=== PATIENT | female | born 1975 | race Caucasian/White ===

== ENCOUNTER 2023-06-09 12:00 | Emergency (ER) | payer OTHER, SELFPAY ==
--- NOTE | ~2023-06-09 | CT_ITS ---
EXAMINATION: CT head/brain wo IV con CLINICAL INFORMATION: Reason for Exam brief period of memory loss Saturday am COMPARISON: None. TECHNIQUE: Contiguous axial imaging was performed from the skull base to vertex without intravenous contrast. Sagittal and coronal reformatted images were obtained. This CT examination was performed using dose optimization techniques as appropriate, variously including the following: * Automated exposure control * Adjustment of mA and/or kV according to patient size (this includes techniques or standardized protocols for targeted exams where dose is matched to indication/reason for exam; i.e. extremities or head) Use of iterative reconstruction technique DLP: 546.9 mGy-cm FINDINGS: No acute osseous or soft tissue abnormality. The mastoid air cells and visualized portions of the paranasal sinuses are well aerated. There is no evidence of acute intracranial hemorrhage or territorial infarction. No abnormal mass effect or midline shift is seen. [place] to white matter differentiation is well preserved. No extra-axial fluid collections are identified. No hydrocephalus. No significant volume loss. There is no abnormal attenuation within the brain parenchyma. CT/CT head/brain wo IV con IMPRESSION: No acute intracranial abnormality including hemorrhage, mass effect, hydrocephalus, or acute territorial edematous infarction.
[2023-06-09 12:33] VITALS: BP 117/55; PULSE 68; RESP 19; TEMP 36.6; O2SAT 98; BMI 41.0
--- NOTE | 2023-06-09 12:39 | ED.GENADULT ---
HPI - General Adult General Chief complaint: General Medical Stated complaint: Headaches Time Seen by Provider: 06/09/23 15:40 Source: patient Mode of arrival: ambulatory Limitations: no limitations History of Present Illness HPI narrative: Patient is a 48-year-old female with history of Graves disease presenting to the emergency department stating that on Saturday morning she was told by a co-worker that she appeared to be asleep in her vehicle. Patient states the worker knows her well and is reliable, reported to patient that she went over to the patient's vehicle to ensure that the patient was breathing which she was. 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 She states she is concerned because she does not remember falling asleep or waking. She was not late to work. he states that she recently returned from a 1 week visit to the [facility] on 05/26. Has had intermittent headaches this week ranging from 4/10 to 7/10. Denies headache or eye twitch currently. Also reports right eye has been twitching intermittently. She reports fatigue, stating that she works 3 jobs. Did not come to ED until today due to having to work. Onset (ago): day(s) Treatments prior to arrival: none Related Data Allergies Allergy/AdvReac Type Severity Reaction Status Date / Time methimazole Allergy Unknown hives Verified 06/09/23 12:32 shelfish Allergy Unknown Hives Uncoded 06/09/23 12:32 Review of Systems Review of Systems: As per HPI. Yes all other systems are reviewed and are negative Constitutional: Constitutional: Reports as per HPI Neurologic: Denies Abnormal speech present [facility] Social History Social History Alcohol intake: never Smoked in Last 30 Days: No Use of substances other than those prescribed or required for medical reasons: No Advance Directives: No Advance Directives Information Provided: No Physical Exam ED Vital Signs: Vital Signs - 24 hr 06/09/23 12:33 06/09/23 15:17 Temperature 98 F 98.4 F Pulse Rate 68 94 Respiratory Rate 19 18 Blood Pressure 117/55 L 130/93 H Pulse Oximetry 98 99 Oxygen Delivery Method Room Air Room Air BMI result Body Mass Index 41.0 Vital signs have been reviewed and appear to be correct. Blood pressure normal. Heart rate normal. Respiratory rate normal. Temperature normal. Oxygen saturation normal. Const General: cooperative, healthy appearing and no acute distress Orientation/consciousness: oriented to person, oriented to place, oriented to time and patient oriented x3 Limitations: no limitations HENMT Head: Yes normocephalic and Yes atraumatic Ears: external ears normal General nose exam: Normal external nose present Face and sinus: Yes face symmetric Mouth: oropharynx normal and moist mucous membranes Throat: Yes uvula midline Eyes Pupils: Equal, round and reactive pupils present Neck Neck: Yes normal visual inspection, Yes no meningeal signs and Yes supple Resp Effort & Inspection: normal respiratory effort and able to speak in complete sentences Auscultation: clear to auscultation bilaterally Cardio Rate: regular rate Rhythm: regular rhythm Heart sounds: S1 normal heart sound present and S2 normal heart sound present GI Palpation (GI): Soft to palpation and nontender Auscultation: normoactive bowel sounds General: Yes no CVA tenderness Back/Spine/Pelvis Back: no CVA tenderness Skin General skin exam: elasticity normal and turgor normal Neuro General: oriented to person, oriented to place, oriented to time, patient oriented x3, gait normal, tone normal, moves all extremities, Normal light touch and pain sensation, no meningeal signs, no focal motor deficits, CN's II-XI intact bilaterally and deep tendon reflexes 2+ bilaterally Cranial nerves: Yes Equal, round and reactive pupils present Cognition (Neuro): normal cognition Speech: No Abnormal speech present Motor exam (neuro): 5/5 motor strength present throughout, Pronator motor function not present, no tremor noted, Normal motor muscle tone present throughout and Motor abnormalities not present Sensory Exam: Normal double simultaneous stimulation for sensation Extrem General: Yes full ROM, Yes no pedal edema and Yes no calf tenderness Psych Mental Status: mental status grossly normal Affect: normal affect Thought process: Normal thought process present NIH Stroke Scale Internal: Initial- Upon Arrival Time: 15:55 Level of Consciousness: Alert Level of Consciousness Questions: Answers both questions correctly Level of Consciousness Commands: Performs both tasks correctly Best Gaze: Normal Visual: No visual loss Facial Palsy: Normal Motor Arm (Right): No drift Motor Arm (Left): No drift Motor Leg (Right): No drift Motor Leg (Left): No drift Limb Ataxia: Absent Sensory: Normal Best Language: No aphasia Dysarthia: Normal Extinction and Inattention: No abnormality Score: 0 Course Course Course Narrative: This is a rapid medical exam. Deferred additional HPI, ROS, PE to primary provider. 48-year-old female here with complaints of feeling more tired, headaches, had episode where she was sleeping in her car and Saturday but can not recall this event occurring, eye is twitching. Works 3 jobs has been making mistakes at work. Will obtain labs, UA, viral testing VSS Medical Decision Making Medical Decision Making [facility] Narrative: Patient is a 48-year-old female with history of Graves disease presenting to the emergency department stating that on Saturday morning she was told by a co-worker that she appeared to be asleep in her vehicle. On exam patient is awake, A+Ox3, VS WNL, afebrile, normal neurological exam without focal deficits, physical exam findings as above. Given reported symptoms and physical exam findings, initial differential includes seizure, TIA, dysrhythmia, fatigue, electrolyte abnormality. Labs within normal limits, D-dimer negative. EKG shows normal sinus rhythm. No evidence of infection on urinalysis. Viral swabs negative. CT notable for no acute abnormalities. My interpretation is in agreement with the radiologist's interpretation. Results discussed with patient and all questions answered. Case discussed with Dr. Arrieta who agrees patient is stable for discharge home. Instructed patient to follow up with PCP on Saturday. Return precautions discussed at bedside. Patient verbalized understanding of and agreement with plan. Differential Diagnosis Differential Diagnoses: The differential diagnosis associated with the presentation includes As per [facility]. Admission/Observation Consideration of admission/observation: Escalation of care including admission/observation considered Lab Data [facility] Lab Attestation statement: I reviewed the patient's lab results. As per MDM 06/09/23 13:17 06/09/23 13:17 Labs: Lab Results 06/09/23 06/09/23 06/09/23 Range/Units 13:17 15:39 17:01 WBC 5.7 (4.8-10.8) X10*3/uL RBC 4.34 (4.20-5.50) X10*6/uL Hgb 13.1 (12.0-16.0) g/dl Hct 39.0 (37.0-47.0) % MCV 89.9 (80.0-98.0) fL MCH 30.2 (27.0-33.0) pg MCHC 33.6 (31.0-35.0) g/dl RDW 13.0 (11.0-16.0) % Plt Count 267 (160-400) X10*3/uL MPV 10.0 (9.4-12.3) fL Immature Gran % (Auto) 0.3 (0.0-0.4) % Neut % (Auto) 67.1 (45-73) % Lymph % (Auto) 25.7 (20-40) % [place] % (Auto) 5.8 (2-11) % Eos % (Auto) 0.9 (0-4) % Baso % (Auto) 0.2 (0-2) % Lymph # (Auto) 1.5 (1.2-4.9) X10*3/uL [place] # (Auto) 0.3 (0.1-1.2) X10*3/uL Eos # (Auto) 0.1 (0.0-0.4) X10*3/uL Baso # (Auto) 0.0 (0.0-0.2) X10*3/uL Abs Immat Gran (auto) 0.02 (0.00-0.03) X10*3/uL Absolute Neuts (auto) 3.8 (2.0-8.3) x10*3/uL Absolute Nucleated RBC 0.000 (0.0-0.012) X10*3/uL Nucleated RBC % (auto) 0.0 (0.0-0.2) /100WBC D-Dimer High Sensitivty 192 NG/ML Sodium 140 (135-145) mmol/L Potassium 3.9 (3.3-5.1) mmol/L Chloride 108 (96-108) mmol/L Carbon Dioxide 23 (22-29) mmol/L Anion Gap 13 (12-20) BUN 12 (9-16) mg/dL Creatinine 0.79 (0.5-1.4) mg/dL Estim Creat Clear Calc 88.9 Estimated GFR > 60 Random Glucose 116 H (60-115) mg/dL Calcium 9.2 (8.4-10.2) mg/dL Magnesium 1.7 (1.6-2.6) mg/dL Total Bilirubin 0.6 (0.0-1.0) mg/dL Direct Bilirubin 0.2 (0.0-0.5) mg/dL AST 17 (5-31) U/L ALT 13 (0-31) U/L Alkaline Phosphatase 75 (39-117) U/L Total Protein 7.6 (6.5-8.0) g/dL Albumin 4.0 (3.5-5.0) g/dL TSH 5.50 H (0.32-4.0) uIU/mL Free T4 0.95 (0.71-1.85) ng/dL Urine Color Yellow Urine Appearance Clear Urine pH 5.5 (5.0-9.0) Ur Specific [place] 1.010 (1.005-1.025) Urine Protein Negative (Neg-Trace) mg/dL Urine Glucose (UA) Negative (Negative) mg/dL Urine Ketones Negative (Negative) mg/dL Urine Blood Negative (Negative) Urine Nitrite Negative (Negative) Ur Leukocyte Esterase Trace H (Negative) Urine RBC 0-2 (0-2) /HPF Urine WBC 0-5 (0-5) /HPF Ur Squamous Epith Cells 3-5 (0-2) /HPF Urine Bacteria None Seen (None Seen) Hyaline Casts 0-2 (0-2) /LPF Urine Test NEGATIVE (NEGATIVE) Influenza Type A (PCR) NEGATIVE (Negative) Influenza Type B (PCR) NEGATIVE (Negative) RSV RNA Qual (PCR) NEGATIVE (Negative) SARS-CoV-2 RNA (RT-PCR) NEGATIVE (Negative) Independent Interpretation I performed an independent interpretation of an: EKG (normal sinus rhythm, rate 66bpm, normal OR interval and QTc) and CT Scan Interpretation: No acute abnormalities Radiology Impression Discussion of test interpretation with radiology: I have reviewed the radiologist's reading. Radiologist Impression: CT/CT head/brain wo IV con IMPRESSION: No acute intracranial abnormality including hemorrhage, mass effect, hydrocephalus, or acute territorial edematous infarction. External Record Review External record reviewed: Inpatient record, Office record and Outpatient record Discharge Plan Discharge Clinical Impression: Episode of unresponsiveness Patient Disposition: Home, Self-Care Additional Instructions: You were evaluated in the emergency department today for a reported episode of unresponsiveness which you do not remember. Your evaluation including EKG, labs, urinalysis, viral testing, and head CT did not show evidence of conditions requiring emergent medical treatment at this time. It is important that you follow up with your primary care provider this week. Return to the emergency department if you experience additional episodes of unresponsiveness, severe headaches, fever, seizure-like activity, fainting, chest pain or shortness of breath, or any other concerning symptoms.
[2023-06-09 13:47] LABS: MANUAL DIFF FLAG NO
[2023-06-09 13:51] LABS: Basophils Percent Auto 0.2 % (0-2); Eosinophils Absolute Auto 0.1 X10*3/uL (0.0-0.4); Eosinophils Percent Auto 0.9 % (0-4); Hemoglobin 13.1 g/dl (12.0-16.0); Imm Gran Abs Auto 0.02 X10*3/uL (0.00-0.03); Imm Gran Pct Auto 0.3 % (0.0-0.4); Lymphocytes Absolute Auto 1.5 X10*3/uL (1.2-4.9); Lymphocytes Percent Auto 25.7 % (20-40); Mean Corpuscular HGB Conc 33.6 g/dl (31.0-35.0); Mean Corpuscular Hemoglobin 30.2 pg (27.0-33.0); Mean Corpuscular Volume 89.9 fL (80.0-98.0); Monocytes Absolute Auto 0.3 X10*3/uL (0.1-1.2); Monocytes Percent Auto 5.8 % (2-11); Neutrophils Absolute Auto 3.8 x10*3/uL (2.0-8.3); Neutrophils Percent Auto 67.1 % (45-73); Platelet Count 267 X10*3/uL (160-400); Red Blood Count 4.34 X10*6/uL (4.20-5.50); White Blood Count 5.7 X10*3/uL (4.8-10.8)
[2023-06-09 14:00] LABS: Appearance Urine Clear; Color Urine Yellow; Glucose Urine UA Negative (Negative); Leukocyte Esterase Urine Trace (Negative); Nitrite Urine Negative (Negative); PH 5.5 (5.0-9.0); UMIC TRIGGER UACC YES; Urine Blood Negative (Negative); Urine Ketones Negative (Negative); Urine Protein Negative (Neg-Trace)
[2023-06-09 14:02] LABS: UPreg QC Valid YES; Urine Pregnancy NEGATIVE (NEGATIVE)
[2023-06-09 14:05] LABS: Bacteria Urine None Seen (None Seen); Hyaline Casts Urine 0-2 /LPF (0-2); RBC Urine 0-2 /HPF (0-2); WBC Urine 0-5 /HPF (0-5)
[2023-06-09 14:37] LABS: Alanine Aminotransferase 13 U/L (0-31); Alkaline Phosphatase 75 U/L (39-117); Anion Gap 13 (12-20); Aspartate Amino Transferase 17 U/L (5-31); Bilirubin Direct 0.2 mg/dL (0.0-0.5); Bilirubin Total 0.6 mg/dL (0.0-1.0); Blood Urea Nitrogen 12 mg/dL (9-16); Calcium 9.2 mg/dL (8.4-10.2); Carbon Dioxide 23 mmol/L (22-29); Chloride 108 mmol/L (96-108); Creatinine Clr Calc Pharmacy 88.9; Estimated Glomerular Filt Rate > 60; Glucose Random 116 mg/dL (60-115); Magnesium 1.7 mg/dL (1.6-2.6); Potassium 3.9 mmol/L (3.3-5.1); Sodium 140 mmol/L (135-145); Total Protein 7.6 g/dL (6.5-8.0)
[2023-06-09 14:47] LABS: Influenza A PCR NEGATIVE (Negative); Influenza B PCR NEGATIVE (Negative); Resp Syncy Virus RNA Qual PCR NEGATIVE (Negative); SARS COV2 PCR INHOUSE NEGATIVE (Negative)
[2023-06-09 15:17] VITALS: BP 130/93; PULSE 94; RESP 18; TEMP 36.9; O2SAT 99
--- NOTE | 2023-06-09 16:44 | ECG_ITS ---
Test Reason : UNRESPONSIVE EPISODE Blood Pressure : / mmHG Vent. Rate : 066 BPM Atrial Rate : 066 BPM P-R Int : 158 ms QRS Dur : 084 ms QT Int : 388 ms P-R-T Axes : 039 054 025 degrees QTc Int : 406 ms Normal sinus rhythm Normal ECG No previous ECGs available Referred By: Anabelle Lancaster Electronically Signed By:LAVERNE GUTIERREZ MD
[2023-06-09 16:52] LABS: Free T4 (Free Thyroxine) 0.95 ng/dL (0.71-1.85)
[2023-06-09 17:16] LABS: D Dimer High Sensitivity 192 NG/ML
== END 2023-06-09 18:08 | disposition home or self-care (01) ==
PROVIDERS: Nurse Practitioner Family; Registered Nurse Emergency; Emergency Provider Emergency Medicine
DX: R51.9 Headache, unspecified (principal); R40.4 Transient alteration of awareness; Z79.899 Other long term (current) drug therapy; Z11.52 Encounter for screening for COVID-19; Z20.822 Contact with and (suspected) exposure to COVID-19
CPT/HCPCS: 0241U; 36415; 70450; 80048; 80076; 81001; 81003; 81025; 83735; 84439; 84443; 85025; 85379; 93005; 99284

== ENCOUNTER → 2023-06-09 16:44 | Outpatient (BNV) | payer OTHER, SELFPAY | PROVIDERS: Emergency Provider Emergency Medicine; Visit Provider Internal Medicine Cardiovascular Disease | DX: R51.9 Headache, unspecified (principal) | CPT/HCPCS: 93010 ==

== ENCOUNTER 2023-11-01 10:58 | Outpatient (AMB) | payer OTHER, SELFPAY ==
--- NOTE | 2023-11-01 11:04 | MHC.PC.OV ---
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 (High BP) - see comments Intake Note: Patient here to establish care and have PE done. Allergies methimazole Allergy (Unknown, Verified 11/01/23 11:08) hives shelfish Allergy (Unknown, Uncoded 11/01/23 11:08) Hives Medication List - Last Reconciled 11/01/23 by HEMANTH Roth No Known Home Meds Tobacco use date assessed: 11/01/23 Dental Screening Dental Screen Date: 11/01/23 Did you have a dental visit in the last 12 months?: Yes Did you have a dental problem in the last 6 months where you did not have access to dental care?: No Was dental information given to patient?: Patient has dentist HPI HPI Comments History of Present Illness Details 48-year-old female with Graves disease, obesity, external hemorrhoid, perimenopause, seasonal allergies, ADHD, Vitamin D def, mild anemia, b12 deficiency, microalbuminuria Surgical: gastric sleeve 2017 with hernia repair, ET tubes in childhood, sebaceous cyst removed from back 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 Health Maintenance: ? Colon referred for this today ? Mammo 01/30/2021, states she had mammo 05/2022, reports has an order, just needs to get done. ? DEXA n/a ? PAP referred for this today ? 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 Limited medical records; details per pt report. Labs done in May of 2023 show a normal CBC, normal CMP with the exception of a mildly elevated random glucose of 116, TSH 5.50, T4 0.95, normal urinalysis, normal CTA of the head. These labs were done during an emergency room visit for brief unresponsiveness while in her car at work. Recommended to see Neuro, but needed a referral. Visit reviewed today. Open to neurology referral, she reports that her father has epilepsy. She has not had any unresponsive episodes since this time. Graves: Was on methimazole; caused a rash; was active with Endo in the past [ Dr [facility] No longer on any medications for her Graves disease. Denies any symptoms. Open to a new referral to endocrinology. GI: when she bends over once every 2 months has cramp/spasm of llq tightens and then loosens up on its own. This started about 1 year ago. can have constipation at times; decreased coffee intake; tried to increase h20 intake to help. Nothing has really helped. Has never had a colonoscopy. Open to referral today. Perimenopausal: May 2023 first missed period. Then June had 2 periods. August and September regular; overdue for a Pap smear. 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 Shellfish allergy; does not have Epipen. Does nt think she needs this. Offered and declined. Advised to at least carry benadryl. Also admits some occasional swelling in her hand, feet and face. Unknown cause @ this time. Occurs around time of travel. ADHD is not treated. Labs from today show slightly low RBCs 4.11, normal hemoglobin, slightly low hematocrit 36.9, otherwise normal CBC, normal electrolytes, normal renal function, hemoglobin A1c 5.2%, normal LFTs, low vitamin-D at 23.6, low normal B12, normal folate, TSH mildly elevated at 4.1 a, free T4 0.88, elevated urine microalbumin creatinine to 3.4, direct LDL pending at this time Plan: Neuro referral to eval episode of unresponsiveness, family hx epilepsy. Refer to GI and recreation supervisor for colon and pap Refer to endocrinology for Graves disease Unsure of cause of LLQ cramp; monitor and fu with GI FLonase and antihistamines for seasonal allergies. Recommendation to start a multivitamin that includes iron, vitamin-D and vitamin B12. We will need to monitor labs in the next visit, which will be in 1 year for complete physical exam. [facility] Surgical History (Updated 11/01/23 @ 18:37 by Ana Murphy, OCCUPATIONAL THERAPIST-) Status post sleeve gastrectomy Hx of hernia repair Social History Housing: Condominium Alcohol intake: never service: No Current occupational status: employed Current occupation: [employer] Cognitive needs: No Hearing needs: No Vision needs: Yes Questionnaire PHQ-9 Over the last 2 weeks, how often have you been bothered by any of the following problems? 1. Little interest or pleasure in doing things: not at all 2. Feeling down, depressed, or hopeless: not at all 3. Trouble falling or staying asleep, or sleeping too much: not at all 4. Feeling tired or having little energy: several days 5. Poor appetite or overeating: not at all 6. Feeling bad about yourself - or that you are a failure or have let yourself or your family down: not at all 7. Trouble concentrating on things, such as reading the newspaper or watching television: several days 8. Moving or speaking so slowly that other people could have noticed. Or the opposite - being so fidgety or restless that you have been moving around a lot more than usual: not at all 9. Thoughts that you would be better off or of hurting yourself in some way: not at all Total score: 2 Depression Screening Interpretation: Negative Depression Screening Done: Yes 62057 - PHQ-9 Billing: Yes Source: Developed by Drs. Anderson Kruger, Heather Masters, Nicola Wong and colleagues, with an educational brady from [employer]. Thrive Questionnaire Date Thrive assessed: 11/01/23 I am a: Patient What is your living situation today?: I have a steady place to live Within the past 12 months, did the food you bought not last and you didn't have the money to get more?: Never true Within the past 12 months, did you worry whether your food would run out before you got money to buy more?: Never true Do you have trouble paying for medicines?: No Do you have trouble getting transportation to medical appointments?: No Do you have trouble paying your heating and electricity bill?: No Do you have trouble taking care of your child, family member or friend?: No Do you have trouble with day-to-day activities such as bathing, preparing meals, shopping, managing finances, etc.?: No Are you currently unemployed and looking for a job?: No Are you interested in more education?: No Currently or been in a relationship where the following occur: No concerns reported THRIVE Score: 0 AUDIT C Alcohol Use Questionnaire (AUDIT-C) 1. How often do you have a drink containing alcohol?: Monthly or less 2. How many drinks containing alcohol do you have on a typical day when you are drinking?: 1 or 2 3. How often do you have six or more drinks on one occasion?: Never Total Score: 1 Score Reviewed/Action Taken: Yes MEHNAZ-7 AMB Questionnaire MEHNAZ-7 Date MEHNAZ - 7 assessed: 11/01/23 Feeling nervous, anxious, or on edge: 1 = Several days Not being able to stop or control worryin = Not at all Worrying too much about different things: 1 = Several days Trouble relaxin = Not at all Being so restless that it is hard to sit still: 0 = Not at all Becoming easily annoyed or irritable: 0 = Not at all Feeling afraid as if something awful might happen: 0 = Not at all Total MEHNAZ-7 score (0-4 normal; 5-9 mild; 10-14 moderate; 15-21 severe): 2 Source: Developed by Drs. Anderson Kruger, Heather Masters, Nicola Wong and colleagues, with an educational brady from [employer]. MEHNAZ-7 Assessment Billing MEHNAZ-7 Assessment Tool: MEHNAZ-7 Assessment 39950 Physical exam (Primary Care) Vital Signs: Last Vital Signs Pulse 76 11/01/23 11:07 BP 120/86 11/01/23 11:07 Pulse Ox 98 11/01/23 11:07 Oxygen Delivery Method Room Air 11/01/23 11:07 BMI result Body Mass Index 42.4 BMI Assessment/Plan discussion: High BMI High, discussed plan: lifestyle Tobacco/Smoking Status: Tobacco use Status Tobacco use date assessed 11/01/23 11/01/23 11:12 PHQ-9: PHQ-9 Score PHQ-9: Total score 2 11/01/23 11:18 Depression Screening Interpretation: Negative Thrive Assessment: Date of Thrive Assessment Date Thrive assessed 11/01/23 11/01/23 11:18 Currently or been in a relationship where the following occur: No concerns reported Const Other: General: Well developed, well nourished, in no acute distress. Appears stated age. Head: Normocephalic, atraumatic. Eyes: Pupils are equal, round and reactive to light and accommodation. Conjunctivae are clear. Vision grossly normal. Ears: TMs with congestion bilat, AU, EACS WNL Nose: Patent, without discharge. Mouth: There are no ulcers or lesions noted. No inflammation, no post nasal drip, no plaques nor exudates. Neck: Supple, no adenopathy; thyroid palpable, nontender, + PND Lungs: Clear to auscultation bilaterally. No rales, rhonchi or wheeze noted. Good air flow in all mora. Heart: Regular rate and rhythm. No murmurs, click, rubs or gallops are noted. Abdomen: Bowel sounds present in all quadrants. The abdomen is soft, nontender, with no masses or organomegaly noted. No hernias are noted. No reproducible abd pain. Musculoskeletal: Joints are nontender, without swelling, redness, or effusions. Range of motion is observed to be normal. Pulses: Peripheral pulses are equal and palpable bilaterally. Extremities: No clubbing, cyanosis noted. Lymphedema, thickening of skin around anterior ankles Neurologic: Gait and station normal. Cranial Nerves 2-12 intact. Motor strength grossly symmetrical and intact. No sensory loss. Balance normal. Skin: No rashes, ulcers, or lesions noted. Turgor is good. Skin color is good. Hair and nails are without abnormalities. Psych: Normal eye contact, affect and mood appropriate, and normal interactions. Patient is alert and appropriate to context. Assessment and Plan Assessment & Plan (1) Encounter for general adult medical examination without abnormal findings: Code(s): Z00.00 - Encounter for general adult medical examination without abnormal findings (2) Screen for colon cancer: Code(s): Z12.11 - Encounter for screening for malignant neoplasm of colon (3) Screening for cervical cancer: Code(s): Z12.4 - Encounter for screening for malignant neoplasm of cervix (4) Episode of unresponsiveness: Code(s): R40.4 - Transient alteration of awareness (5) Family history of epilepsy: Code(s): Z82.0 - Family history of epilepsy and other diseases of the nervous system (6) Graves disease: Code(s): E05.00 - Thyrotoxicosis with diffuse goiter without thyrotoxic crisis or storm (7) Vitamin D deficiency: Code(s): E55.9 - Vitamin D deficiency, unspecified (8) B12 deficiency: Code(s): E53.8 - Deficiency of other specified B group vitamins (9) Mild anemia: Code(s): D64.9 - Anemia, unspecified (10) Shellfish allergy: Code(s): Z91.013 - Allergy to seafood (11) Morbid obesity with BMI of 40.0-44.9, adult: Code(s): E66.01 - Morbid (severe) obesity due to excess calories; Z68.41 - Body mass index [BMI] 40.0-44.9, adult (12) Perimenopausal: Code(s): N95.1 - Menopausal and female climacteric states (13) Seasonal allergies: Code(s): J30.2 - Other seasonal allergic rhinitis (14) ADHD: Code(s): F90.9 - Attention-deficit hyperactivity disorder, unspecified type Qualifiers: Attention deficit-hyperactivity disorder type: predominantly inattentive Qualified Code(s): F90.0 - Attention-deficit hyperactivity disorder, predominantly inattentive type (15) Microalbuminuria: Code(s): R80.9 - Proteinuria, unspecified Orders: Orders Comprehensive Met. Panel Today E05.00 - Thyrotoxicosis with diffuse goiter without thyrotoxic crisis or storm Complete Blood Count no Diff Today E05.00 - Thyrotoxicosis with diffuse goiter without thyrotoxic crisis or storm Microalbumin, Random (w Creat) Today E05.00 - Thyrotoxicosis with diffuse goiter without thyrotoxic crisis or storm TSH reflex Free T4 Today E05.00 - Thyrotoxicosis with diffuse goiter without thyrotoxic crisis or storm Vitamin B12 and Folate Today E05.00 - Thyrotoxicosis with diffuse goiter without thyrotoxic crisis or storm Vitamin D 25-OH Total Today E05.00 - Thyrotoxicosis with diffuse goiter without thyrotoxic crisis or storm Hemoglobin A1c Today E05.00 - Thyrotoxicosis with diffuse goiter without thyrotoxic crisis or storm LDL Cholesterol Direct Today E05.00 - Thyrotoxicosis with diffuse goiter without thyrotoxic crisis or storm Referrals Gastroenterology Referral Z12.11 - Encounter for screening for malignant neoplasm of colon STICKER OPERATOR Referral Z12.4 - Encounter for screening for malignant neoplasm of cervix Neurology Referral R40.4 - Transient alteration of awareness, Z82.0 - Family history of epilepsy and other diseases of the nervous system Endocrinology Referral E05.00 - Thyrotoxicosis with diffuse goiter without thyrotoxic crisis or storm Patient Instructions: Walk-In Care (Urgent Care): We Make it Easy Walk-in for urgent medical issues such as: ? Seasonal Allergies ? Insect Bites ? Cough ? Diarrhea ? Acute Asthma Attacks ? Back, Knee or Joint Pain ? Ear Infection ? Fever without a Rash ? Headaches ? Nausea ? [place], Rash or Skin Irritation ? Sore Throat ? Sports Physicals ? Vomiting Most insurances are accepted. Patients do not need to be part of the [facility] to seek care at the walk-in clinic. Locations [facility] , [place] [address] ? [phone] [facility] in [place] provides services to ages 18 and over. Open Saturday-Saturday: 8 a.m. to 5 p.m. and Saturday: 9 a.m. to 3 p.m.* *Hours may vary due to staffing availability. To confirm Walk-In Care hours in [place], please call [phone]. [address] [place] [address] ? [phone] [facility] in [place] provides services to ages 12 and over. Open Saturday-Saturday: 8 a.m. to 5 p.m. Hours may vary due to staffing availability. To confirm Walk-In Care hours in [place], please call [phone]. LABORATORY SERVICES: [facility] [place] [place] Lab ? Primary Location [address] [place] [address] Saturday through Saturday 6:00 AM ? 5:00 PM Saturday 7:00 AM ? 11:00 AM* [phone] The [facility] [place] [place] Lab is centrally located near the front entrance of the Medical Center for easy outpatient access. Convenient parking is provided for outpatients. *Hours may vary due to staffing availability. To confirm Laboratory hours for any location, please call [phone]. Offsite Location For your convenience, we offer offsite laboratory draw stations at the following locations: [address] [place] [address] [address], [address] Saturday through Harry 7:30 AM ? 1:00 PM* [phone] *Hours may vary due to staffing availability. To confirm Laboratory hours for any location, please call [phone]. [place] ? [address] Saturday through Saturday 6:00 AM ? 3:30 PM* Saturday 6:30 AM ? 3 PM* [phone] *Hours may vary due to staffing availability. To confirm Laboratory hours for any location, please call [phone] [address] [facility] Saturday through Saturday 7:30 AM ? 4:00 PM* [phone] *Hours may vary due to staffing availability. To confirm Laboratory hours for any location, please call [phone] [place] [address] Saturday through 9:00 AM ? 4:00 PM* *Hours may vary due to staffing availability. To confirm Laboratory hours for any location, please call [phone]. Appointments are not necessary. Walk-ins are welcome. Like all the departments throughout the [facility], our Lab undergoes frequent reviews to ensure the quality and accuracy of test results, and our staff takes special pride in its status as a nationally accredited facility. Patient Portal: ONE PATIENT. ONE RECORD. BETTER CARE. [facility] has a fully integrated, cutting-edge mobile electronic health information system that has revolutionized the way we care for our patients and manage our organization. This system improves communication and coordination enabling us to provide safe, higher-quality care, and an overall positive experience for staff and patients. Our first priority, as always, is to deliver the highest quality care possible. The system is running in the background supporting that priority. This portal is for all [facility] and [facility] services and practices. If you are experiencing any technical difficulties with enrolling or logging into the Patient Portal please complete the [facility] [place] [place] Patient Portal Technical Support Form. [facility] now offers a new secure on-line interactive tool for patients to review their health information ? Patient Portal. This interactive web portal will enable patients and their families to take an active role in their care by providing easy, secure access to their health information via the internet. The Patient Portal provides patients with instant access to their health information, including laboratory results, medications, allergies, demographic information, visit history, and more. In addition to managing their own care, parents and health care proxies with authorized consent will appreciate the ability to access the records of those individuals for whom they provide care. Please note: if you wish to gain access (Proxy) to another patient?s portal, you will be required to come to the Medical Records Department in person at [facility]. Both the patient giving proxy access and the proxy will need to provide photo identification and complete the appropriate authorization. The Patient Portal also allows track their appointments online. The [facility] [place] [place] Patient Portal also saves patients time by allowing them to submit updates to their demographic and contact information prior to their visits. Portal email notifications will also alert patients to any new activity on their portal, such as test results and new appointments. In order to initially enroll in the [facility] [place] [place] Patient Portal, you will need to enter some required information including the following: ? your [facility] [place] [place] Medical Record number ? your personal home email address ? name ? date of Please note: In order to enroll in the [facility] [place] [place] Patient Portal, we need to have your email address on file in your electronic medical record. The email address needs to be specific for one person (yourself) in order for your Portal enrollment to be successful. You can update your email address in person with our Registration staff when you are registering for a hospital visit. Otherwise, you will need to come to the Health Information Management (Medical Records) Department at [facility]. We are open from Saturday ? Saturday from 7:30 a.m. ? 4:30 p.m. You will be required to present a photo id. Once you have successfully enrolled in the Patient Portal, you will receive a one-time user id and password for the Portal, sent to your email address. This will allow you to log into the Patient Portal within 99 hrs and reset your own logon id and password, and define personal security questions. Once your permanent login and password have been set, you can log into the [facility] [place] [place] Patient Portal at any time via the blue button above or from the Portal Logon button on any page of the [facility] website. [facility] and [facility] encourage all of our patients to enroll in Patient Portal as it presents a valuable opportunity for patients and their families to actively participate in their care and stay healthy Welcome to [facility]. We look forward to working with you. Health screenings for women You should visit your health care provider from time to time, even if you are healthy. The purpose of these visits is to: Screen for medical issues Assess your risk for future medical problems Encourage a healthy lifestyle Update vaccinations and other preventive care services Help you get to know your provider in case of an illness Information Even if you feel fine, you should still see your provider for regular checkups. These visits can help you avoid problems in the future. For example, the only way to find out if you have high blood pressure is to have it checked regularly. High blood sugar and high cholesterol levels also may not have any symptoms in the early stages. A simple blood test can check for these conditions. There are specific times when you should see your provider or receive specific health screenings. The [place] Preventive Services Task Force publishes a list of recommended screenings. Below are screening guidelines for women ages 18 to 39. BLOOD PRESSURE SCREENING Your blood pressure should be checked at least once every 3 to 5 years if: Your blood pressure is in the normal range (top number less than 120 mm Hg and bottom number less than 80 mm Hg) You don't have risk factors for high blood pressure Ask your provider if you need your blood pressure checked more often if: The top number is 120 to 129 mm Hg or the bottom number is 70 to 79 mm Hg You have diabetes, heart disease, kidney problems, are overweight, or have certain other health conditions You have a first-degree relative with high blood pressure You are Black You had high blood pressure during a If the top number is 130 mm Hg or greater or the bottom number is 80 mm Hg or greater, this is considered stage 1 hypertension. Schedule an appointment with your provider to learn how you can reduce your blood pressure. Watch for blood pressure screenings in your area. Ask your provider if you can stop in to have your blood pressure checked. BREAST CANCER SCREENING Experts do not agree about the benefits of breast self-exams in finding breast cancer or saving lives. Talk to your provider about what is best for you. A screening mammogram is not recommended for most women under age 40. Your provider may discuss and recommend mammograms, MRI scans, or ultrasounds if you have an increased risk for breast cancer, such as: A mother or sister who had breast cancer at a young age (most often starting screening earlier than the age the close relative was diagnosed) You carry a high-risk genetic marker CERVICAL CANCER SCREENING Cervical cancer screening should start at age 21 years unless your provider advises otherwise. After the first test: Women ages 21 through 29 should have a Pap test every 3 years. Exoprts do not agree on whether HPV testing is recommended for this age group. Women ages 30 through 65 should be screened with either a Pap test every 3 years or the HPV test every 5 years or both tests every 5 years (called cotesting ). Women who have been treated for precancer (cervical dysplasia) should continue to have Pap tests for 20 years after treatment or until age 65, whichever is longer. If you have had your uterus and cervix removed (total hysterectomy), and you have not been diagnosed with cervical cancer or precancer (high grade cervical neoplasia), you do not need cervical cancer screening. CHOLESTEROL SCREENING Cholesterol screening should begin at: Age 45 for women with no known risk factors for coronary heart disease Age 20 for women with known risk factors for coronary heart disease Repeat cholesterol screening should take place: Every 5 years for women with normal cholesterol levels More often if changes occur in lifestyle (including weight gain and diet) More often if you have diabetes, heart disease, kidney problems, or certain other conditions DIABETES SCREENING You should be screened for diabetes starting at age 35 and then repeated every 3 years if you have no risk factors for diabetes. Screening may need to start earlier and be repeated more often if you have other risk factors for diabetes, such as: You have a first degree relative with diabetes. You are overweight or have obesity. You have high blood pressure, prediabetes, or a history of heart disease. Screening for diabetes should be done if you are planning to become and you are overweight and have other risk factors such as high blood pressure. DENTAL EXAM Go to the dentist once or twice every year for an exam and cleaning. Your dentist will evaluate if you need more frequent visits. EYE EXAM Have an eye exam every 5 to 10 years before age 40. If you have vision problems, have an eye exam every 2 years or more often if recommended by your provider. You should have an eye exam that includes an examination of your retina (back of your eye) at least every year if you have diabetes. IMMUNIZATIONS Commonly needed vaccines include: Flu shot: get one every year. COVID-19 vaccine: ask your provider what is best for you. Tetanus-diphtheria and acellular pertussis (Tdap) vaccine: have one at or after age 19 as one of your tetanus-diphtheria vaccines if you did not receive it as an adolescent. Tetanus-diphtheria: have a booster (or Tdap) every 10 years. Varicella vaccine: receive 2 doses if you never had chickenpox or the varicella vaccine. Hepatitis B vaccine: receive 2, 3, or 4 doses, depending on your exact circumstances. Measles, mumps, and rubella (MMR) vaccine: receive 1 to 2 doses if you are not already immune to MMR. Your provider can tell you if you are immune. Ask your provider about the human papillomavirus (HPV) vaccine if: You have not received the HPV vaccine in the past You have not completed the full vaccine series (you should catch up on this shot) Ask your provider if you should receive other immunizations if you have certain health problems that increase your risk for some diseases such as pneumonia. INFECTIOUS DISEASE SCREENING Women who are sexually active should be screened for chlamydia and gonorrhea up until age 25. Women 25 years and older should be screened for chlamydia and gonorrhea if at high risk. Screening for hepatitis C: All adults ages 18 to 79 should get a one-time test for hepatitis C. people should be screened at every . Screening for human immunodeficiency virus (HIV): All people ages 15 to 65 should get a one-time test for HIV. Depending on your lifestyle and medical history, you may also need to be screened for infections such as syphilis and HIV, as well as other infections. PHYSICAL EXAM All adults should visit their provider from time to time, even if they are healthy. The purpose of these visits is to: Screen for disease Assess your risk of future medical problems Encourage a healthy lifestyle Update your vaccinations and other preventive care services Maintain a relationship with a provider in case of an illness Your height, weight, and BMI should be checked at every exam. During your exam, your provider may ask you about: Depression and anxiety Diet and exercise Alcohol and tobacco use Safety issues, such as using seat belts, smoke detectors, and intimate partner violence Your medicines and risk for interactions SKIN SELF-EXAM Your provider may check your skin for signs of skin cancer, especially if you're at high risk, such as if you: Have had skin cancer before Have close relatives with skin cancer Have a weakened immune system OTHER SCREENING Talk with your provider about colon cancer screening if you have a strong family history of colon cancer or polyps, or if you have had inflammatory bowel disease or polyps yourself. Routine bone density screening of women under 40 is not recommended. Coding Level of Care Code New Pt Prev Care 40-64y(25113) Diagnoses Encounter for general adult medical examination without abnormal findings Z00.00 Screen for colon cancer Z12.11 Screening for cervical cancer Z12.4 Episode of unresponsiveness R40.4 Family history of epilepsy Z82.0 Graves disease E05.00 Vitamin D deficiency E55.9 B12 deficiency E53.8 Mild anemia D64.9 Shellfish allergy Z91.013 Morbid obesity with BMI of 40.0-44.9, adult E66.01; Z68.41 Perimenopausal N95.1 Seasonal allergies J30.2 Attention deficit hyperactivity disorder (ADHD), predominantly inattentive type F90.0 Attention deficit-hyperactivity disorder type: predominantly inattentive Microalbuminuria R80.9 Additional Codes MEHNAZ-7 Assessment Billing - MEHNAZ-7 Assessment Tool: MEHNAZ-7 Assessment [id number] ([id number])
[2023-11-01 11:07] VITALS: BP 120/86; PULSE 76; O2SAT 98; BMI 42.4
== END 2023-11-01 12:01 | disposition home or self-care (01) ==
PROVIDERS: PCP Nurse Practitioner Family; Visit Provider Nurse Practitioner Family
DX: Z00.00 Encounter for general adult medical examination without abnormal findings (principal); E66.01 Morbid (severe) obesity due to excess calories; Z68.41 Body mass index [BMI] 40.0-44.9, adult; R40.4 Transient alteration of awareness; N95.1 Menopausal and female climacteric states; Z12.11 Encounter for screening for malignant neoplasm of colon; Z82.0 Family history of epilepsy and other diseases of the nervous system; E05.00 Thyrotoxicosis with diffuse goiter without thyrotoxic crisis or storm; E55.9 Vitamin D deficiency, unspecified; E53.8 Deficiency of other specified B group vitamins; D64.9 Anemia, unspecified; Z91.013 Allergy to seafood
CPT/HCPCS: 99386

== ENCOUNTER 2023-11-01 12:11 | Outpatient (REF) | payer OTHER, SELFPAY ==
[2023-11-01 14:06] LABS: Hematocrit 36.9 % (37.0-47.0); Hemoglobin 12.2 g/dl (12.0-16.0); Mean Corpuscular HGB Conc 33.1 g/dl (31.0-35.0); Mean Corpuscular Hemoglobin 29.7 pg (27.0-33.0); Mean Corpuscular Volume 89.8 fL (80.0-98.0); Mean Platelet Volume 10.7 fL (9.4-12.3); Platelet Count 293 X10*3/uL (160-400); Red Blood Count 4.11 X10*6/uL (4.20-5.50); Red Cell Distribution Width 13.4 % (11.0-16.0); White Blood Count 5.3 X10*3/uL (4.8-10.8)
[2023-11-01 14:16] LABS: Estimated Average Glucose 103 mg/dL; Hemoglobin A1c % 5.2 % (<6.0)
[2023-11-01 14:26] LABS: Alanine Aminotransferase 12 U/L (0-31); Alkaline Phosphatase 74 U/L (39-117); Anion Gap 12 (12-20); Aspartate Amino Transferase 15 U/L (5-31); Bilirubin Total 0.4 mg/dL (0.0-1.0); Blood Urea Nitrogen 17 mg/dL (9-16); Calcium 9.7 mg/dL (8.4-10.2); Carbon Dioxide 24 mmol/L (22-29); Chloride 108 mmol/L (96-108); Estimated Glomerular Filt Rate > 60; Glucose Random 99 mg/dL (60-115); Potassium 3.9 mmol/L (3.3-5.1); Sodium 140 mmol/L (135-145); Total Protein 7.2 g/dL (6.5-8.0)
[2023-11-01 14:47] LABS: Folate 4.7 ng/mL (> or = 4.0); Vitamin B12 225 pg/mL (200-900)
[2023-11-01 14:49] LABS: TSH reflex Free T4 4.18 uIU/mL (0.32-4.0); Vitamin D 25-OH Total 23.6 ng/mL (>30)
[2023-11-01 14:51] LABS: Creatinine Urine 175.94 mg/dL; Microalbum/Creatinine Ratio Ur 203.4 ug/mg cr (<30)
[2023-11-01 15:42] LABS: Free T4 (Free Thyroxine) 0.88 ng/dL (0.71-1.85)
[2023-11-02 12:49] LABS: LDL Cholesterol Direct 127 mg/dL (<100)
== END 2023-11-01 12:12 | disposition home or self-care (01) ==
LOC: HO.WFDLDS 12:11
PROVIDERS: Visit Provider Nurse Practitioner Family
DX: Z13.1 Encounter for screening for diabetes mellitus (principal); E05.00 Thyrotoxicosis with diffuse goiter without thyrotoxic crisis or storm
CPT/HCPCS: 36415; 80053; 82043; 82306; 82570; 82607; 82746; 83036; 83721; 84439; 84443; 85027

== ENCOUNTER 2023-12-23 09:13 | Outpatient (AMB) | payer OTHER, SELFPAY ==
[2023-12-23 09:15] VITALS: BP 132/70; PULSE 86; BMI 42.9
--- NOTE | 2023-12-23 09:15 | MHC.OFFVIS ---
Vital Signs 12/23/23 09:15 Height 5 ft Weight 219 lb 12.814 oz BMI 42.9 BP 132/70 Blood Pressure Location Lt brachial Position Sitting Pulse 86 Pulse Source Pulse Oximeter Intake Visit Reasons: Thyrotoxicosis Intake Note: Patient present today for Thyrotoxicosis office visit. Family Nurse Required: No Accompanied by: Self / Same As Patient Allergies methimazole Allergy (Unknown, Verified 12/23/23 09:23) hives shelfish Allergy (Unknown, Uncoded 12/23/23 09:23) Hives Medication List - Last Reconciled 12/23/23 by Dionne Morin MD No Known Home Meds HPI Comments Details: 48 years old female coming in today for initial evaluation of history of hyperthyroidism with labs now showing subclinical hypothyroidism. 2017: Used to see Dr. Bisi Gonzalez at [facility], underwent thyroid uptake and scan, was told she had Graves disease , was on methimazole for a few months and then developed rash , and then subsequently didnt require it. At thattime was having heat intolerance and palpitations. Thinks she had mononucleosis maybe at the same time. Feeling tired. Being worked up for epilepsy. Dry skin. Gained 8 lbs. Patient currently denies heat or cold intolerance, diarrhea or constipation, palpitation, anxiety, mood changes, changes in appearance of eyes or vision changes, tremors, increased diaphoresis. ?Menstruation is regular. No hot flashes. Patient denies any difficulty swallowing, pain on swallowing or voice changes or difficulty breathing. Patient denies any history of childhood neck radiation. Denies having ever used lithium, amiodarone or biotin supplements. Just takes a multivitamin Patient denies any family history of thyroid cancer or thyroid disease. No history of heart disease or stroke. Review of systems Constitutional: no fevers, chills HEENT: no changes in vision Cardiac: No chest pain, discomfort or palpitations. Pulmonary: No SOB GI:Reports some intermittent cramping, no nausea or vomiting, no anorexia, no blood in stool : no burning micturition, dysuria or increase in urinary frequency Physical exam General: sitting comfortably in no acute distress HEENT: normocephalic/atraumatic, moist oral mucosa Neck: supple, symmetrical, no thyromegaly , Cardiac: normal heart sounds Pulm: normal breath sounds B/L, no added breath sounds Abd: not distended, no tenderness Extremities: no edema, no signs of myxedema Neuro: AAO x3, Speech: normal, no facial droop, moving all 4 extremities, no tremors, normal reflexes [facility] Medical History (Updated 12/23/23 @ 09:47 by Dionne Morin MD) Subclinical hypothyroidism Surgical History (Updated 11/01/23 @ 18:37 by Ana Murphy, [facility]) Status post sleeve gastrectomy Hx of hernia repair Social History Housing: Condominium Alcohol intake: never service: No Current occupational status: employed Current occupation: [employer] Cognitive needs: No Hearing needs: No Vision needs: Yes Physical Exam Vital Signs: Last Vital Signs Pulse 86 12/23/23 09:15 BP 132/70 12/23/23 09:15 BMI result Body Mass Index 42.9 Results Reviewed Results Reviewed: Laboratory Tests 06/09/23 11/01/23 15:39 12:12 TSH 5.50 H 4.18 H Free T4 0.95 0.88 Assessment & Plan Assessment & Plan (1) Subclinical hypothyroidism: Code(s): E03.8 - Other specified hypothyroidism Category: Medical Plan: Patient coming in today for evaluation of subclinical hypothyroidism. Most recent blood work done in October 2023 showed TSH of 4.18, normal free T4. She does not have any significant symptoms except reporting some tiredness and difficulty losing weight. She does report that back in 2016 she was being evaluated for Graves disease and was started on methimazole which she only took for a few months and then came off it after she developed rash. Subsequently her blood work normalized. She does think she had mononucleosis around the same time, could this possibly-thyroiditis. She could also have autoimmune thyroid disease and rarely that can fluctuate between hyperthyroidism and hypothyroidism. Currently given her labs are suggestive of subclinical hypothyroidism, I explained to her that she does not meet criteria for treatment which is TSH greater than 10 or TSH between 6-9 with symptoms of hypothyroidism. At this point we will repeat her labs today and also check for antibody levels. Subsequently we will repeat her labs in 6 months. Plan: -ordered TSI, TPO, thyrotropin receptor antibody -ordered free T4, TSH to be done now and then again 6 months -follow up in 6 months Plan I spent 45 minutes in reviewing the record, seeing the patient and documenting in the medical record. Orders: Orders Thyrotropin Receptor Antibody Today E03.8 - Other specified hypothyroidism Thyroid Peroxidase Antibodies Today E03.8 - Other specified hypothyroidism Thyroid Stimulating Hormone Today E03.8 - Other specified hypothyroidism Free T4 (Free Thyroxine) Today E03.8 - Other specified hypothyroidism Thyroid Stimulating Immunoglob Today E03.8 - Other specified hypothyroidism Patient Instructions: do blood work today no fasting We will call you with results Follow up in 6 months again with repeat blood work a few days prior Coding Level of Care Code New Pt Level 4 (52350) Diagnoses Subclinical hypothyroidism E03.8 Time Spent (min) 45
== END 2023-12-23 09:51 | disposition home or self-care (01) ==
PROVIDERS: PCP Nurse Practitioner Family; Visit Provider Student in an Organized Health Care Education/Training Program
DX: E03.8 Other specified hypothyroidism (principal)
CPT/HCPCS: 99204

== ENCOUNTER → 2023-12-23 09:13 | Outpatient (BNVA) | payer OTHER, SELFPAY | PROVIDERS: PCP Nurse Practitioner Family; Visit Provider Student in an Organized Health Care Education/Training Program ==

== ENCOUNTER 2023-12-23 10:07 | Outpatient (REF) | payer OTHER, SELFPAY ==
[2023-12-23 11:44] LABS: Free T4 (Free Thyroxine) 0.81 ng/dL (0.71-1.85); Thyroid Stimulating Hormone 6.38 uIU/mL (0.32-4.0)
[2023-12-24 13:29] LABS: Thyroid Peroxidase Antibodies >900 IU/mL (<9)
[2023-12-26 19:59] LABS: Thyrotropin Receptor Antibody 2.63 IU/L (<=2.00)
[2023-12-27 16:53] LABS: Thyroid Stimulating Immunoglob 123 % baseline (<140)
== END 2023-12-23 10:08 | disposition home or self-care (01) ==
LOC: HO.10HDL 10:07
PROVIDERS: Visit Provider Student in an Organized Health Care Education/Training Program
DX: E03.8 Other specified hypothyroidism (principal)
CPT/HCPCS: 36415; 83520; 84439; 84443; 84445; 86376

== ENCOUNTER 2024-03-18 09:40 | Outpatient (AMB) | payer OTHER, SELFPAY ==
[2024-03-18 09:42] VITALS: BMI 42.9
--- NOTE | 2024-03-18 09:42 | MHC.OFFVIS ---
Vital Signs 03/18/24 09:42 Height 5 ft Weight 219 lb 9.286 oz BMI 42.9 Intake Visit Reasons: [place] consult Intake Note: New patient in office today for colonoscopy screening. CC: Patient reports reports abdominal spasms when she bends down that happens every 6-8 weeks. Patient reports occasional constipation. [employer] Required: No Accompanied by: Self / Same As Patient Allergies methimazole Allergy (Unknown, Verified 03/18/24 09:49) hives shelfish Allergy (Unknown, Uncoded 12/23/23 09:23) Hives HPI HPI [place] consult: Details: 49-year-old female here for preprocedural meeting to discuss a screening colonoscopy. She is referred by Ana Murphy. PMX Morbid obesity Graves disease/hypothyroid Allergic rhinitis High cholesterol B12 deficiency ADHD Seizures - father and grandfather had epilepsy possible absence seizures History of diverticulitis * SURGICAL HISTORY Sleeve gastrectomy Hernia repair Umbilical Tympanoscopy tubes * ALLERGIES Shellfish Tapazole * Purer Skin LABS: PCP had on order TODAY'S VISIT This is her first colonoscopy. She thought she was sent here to investigate a damien horse that is occurring in her LUQ when she bends over. It is brief in timing and resolves if she stands up. It will occur about every 6 weeks. She feels this is not very deep in her body and it is not r/t eaing or moving her bowels. She is moving her bowels well, she has a known hemorrhoid. She had a procedure once where her BP dropped, no other problems with anesthesia or sedation. There are no prior problems with anesthesia or sedation.. No ID problems. Her mother had colon polyps removed. [facility] Medical History (Updated 03/18/24 @ 10:33 by RUSH Mac) Screen for colon cancer Screening for cervical cancer Encounter for general adult medical examination without abnormal findings Subclinical hypothyroidism Surgical History (Updated 03/18/24 @ 09:54 [facility] History of placement of ear tubes Status post sleeve gastrectomy Hx of hernia repair Family History (Updated 03/18/24 @ 09:52 by ROMMEL Rodríguez) Mother Colon polyps Social History (Updated 03/18/24 @ 09:52 by ROMMEL Rodríguez) Housing: Condominium Alcohol intake: current Alcohol intake frequency: holidays/special occasions only Patient Tobacco Use Status: Never used Tobacco service: No Current occupational status: employed Current occupation: [employer] Cognitive needs: No Hearing needs: No Vision needs: Yes Review of Systems Const Denies fatigue, Denies fever(s), Denies night sweats, Denies poor appetite and Denies weight loss ENT Reports Normal hearing present, Denies dysphagia, Denies odynophagia, Denies throat swelling and Denies tongue swelling Card Reports no additional complaints Resp Reports no additional complaints GI Details: Denies abdominal pain, Denies melena, Denies bloating, Denies hematochezia, Denies constipation, Reports GI cramping, Denies dysphagia, Denies excessive flatus, Denies early satiety, Denies heartburn, Denies diarrhea, Denies nausea, Denies odynophagia, Denies vomiting and Denies hematemesis Musc Reports muscle cramps Skin/Breast Denies pruritus, Denies lesions, Denies rash and Denies jaundice Neuro Reports Normal hearing present and Denies Abnormal speech present Endo Denies fatigue Aller/Immun Denies throat swelling and Denies tongue swelling Physical Exam Vital Signs: BMI result Body Mass Index 42.9 Const General: cooperative, no acute distress, well developed and well groomed Nutritional Appearance: well nourished and obese Orientation/consciousness: oriented to person, oriented to place and oriented to time Limitations: No language barrier HEENT Head: Yes normocephalic and Yes atraumatic Eyes General: appearance normal, both eyes and all related structures Pupils: Equal, round and reactive pupils present Neck Neck: Yes normal visual inspection and Yes no lymphadenopathy Thyroid: Thyroid normal Resp Effort & Inspection: normal respiratory effort and able to speak in complete sentences Auscultation: clear to auscultation bilaterally Cardio Rate: regular rate Rhythm: regular rhythm Heart sounds: Normal, physiologic split S2 sound present Peripheral pulses: radial pulses present and posterior tibial pulses present GI Inspection: No distended, Yes Abdominal panniculus present and Yes obesity Palpation (GI): Soft to palpation, nontender, no guarding, not rigid and No hepatosplenomegaly present Percussion: Yes normal to percussion Auscultation: normal bowel sounds Rectal Exam - Female: deferred Skin General skin exam: no rashes or lesions noted, turgor normal, skin not dry, no jaundice, No spider nevi and no striae Rashes: no rashes Nails: normal Neuro General: oriented to person, oriented to place and oriented to time Cranial nerves: Yes Equal, round and reactive pupils present and Yes Normal hearing present Speech: No Abnormal speech present Extrem Other: Rt ankle abrasion General: Yes normal to inspection, No clubbing, No cyanosis and Yes edema Psych Appearance: grossly normal and well kempt Mental Status: mental status grossly normal Speech and movement: Normal speech and movement present Affect: normal affect Attitude: cooperative Thought process: Normal thought process present and not confabulating Thought content: Normal thought content present Insight: Good insight present (Psych) Judgement: Good judgement present (Psych) Assessment & Plan Assessment & Plan (1) Morbid obesity with BMI of 40.0-44.9, adult: Code(s): E66.01 - Morbid (severe) obesity due to excess calories; Z68.41 - Body mass index [BMI] 40.0-44.9, adult Category: Medical (2) Abdominal cramping: Code(s): R10.9 - Unspecified abdominal pain Category: Medical Plan This is her first colonoscopy. She thought she was sent here to investigate a damien horse that is occurring in her LUQ when she bends over. It is brief in timing and resolves if she stands up. It will occur about every 6 weeks. She feels this is not very deep in her body and it is not r/t eaing or moving her bowels. She is moving her bowels well, she has a known hemorrhoid. She had a procedure once where her BP dropped, no other problems with anesthesia or sedation. There are no prior problems with anesthesia or sedation.. No ID problems. Her mother had colon polyps removed. A trial of dicyclomine was provided but it really sounds like this is more of a musculoskeletal problem that may benefit in the future from a thoracic and lumbar spine x-ray. Orders: Orders Colonoscopy - GI Use Only Today E66.01 - Morbid (severe) obesity due to excess calories, Z68.41 - Body mass index [BMI] 40.0-44.9, adult Medications: New sodium,potassium,mag sulfates 17.5-3.13-1.6 gram (Suprep Bowel Prep Kit) 480 mL orally; FOR COLONOSCOPY PREP 354 mL 0RF dicyclomine 10 mg PO BID 60 caps 1RF R10.9 - Unspecified abdominal pain Coding Level of Care Code New Pt Level 3 (04187) Diagnoses Morbid obesity with BMI of 40.0-44.9, adult E66.01; Z68.41 Abdominal cramping R10.9
== END 2024-03-18 10:33 | disposition home or self-care (01) ==
PROVIDERS: PCP Nurse Practitioner Family; Visit Provider Nurse Practitioner
DX: E66.01 Morbid (severe) obesity due to excess calories (principal); Z68.41 Body mass index [BMI] 40.0-44.9, adult; R10.9 Unspecified abdominal pain
CPT/HCPCS: 99203

== ENCOUNTER → 2024-03-18 09:40 | Outpatient (BNVA) | payer OTHER, SELFPAY | PROVIDERS: PCP Nurse Practitioner Family; Visit Provider Nurse Practitioner ==

== ENCOUNTER 2024-06-09 14:16 | Outpatient (REF) | payer OTHER, SELFPAY ==
[2024-06-09 16:10] LABS: Free T4 (Free Thyroxine) 0.95 ng/dL (0.71-1.85)
[2024-06-09 16:22] LABS: Thyroid Stimulating Hormone 5.12 uIU/mL (0.32-4.0)
--- OUTSIDE RECORDS SUMMARY | 2024-06-09 17:30 | XMS_ITS ---
Author Name [facility] Organization Unknown History of Medication Use Medication Directions Dispensed Refills Start Date End Date [facility] oseltamivir (TAMIFLU) 75 MG capsule Take 1 capsule (75 mg total) by mouth 2 (two) times a day for 5 days 04/28/2024 active ibuprofen (ADVIL) 200 MG tablet Take 1 tablet (200 mg total) by mouth every 6 (six) hours as needed for moderate pain or fever for up to 7 days Max 2,400 mg/day. 04/28/2024 active acetaminophen (TYLENOL) 500 MG tablet Take 1-2 tablets (500-1,000 mg total) by mouth every 6 (six) hours as needed for pain (Max 6 tablets/24 hrs) for up to 7 days 04/28/2024 active sodium chloride (OCEAN) 0.65 % nasal spray Instill 1 spray into each nostril as needed for congestion 01/07/2024 active Problems Problem Status Onset Date Problem Type Date of Resolution Source Elevated BP without diagnosis of hypertension active EncounterDiagnosisAct [facility]_ [facility] Influenza A active EncounterDiagnosisAct [facility] Middle ear effusion, right active EncounterDiagnosisAct [facility]_ [facility] Fever, unspecified fever cause active EncounterDiagnosisAct [facility] Acute viral sinusitis active EncounterDiagnosisAct [facility] Acute pharyngitis, unspecified etiology active EncounterDiagnosisAct [facility] Left foot pain active EncounterDiagnosisAct [facility] Foot sprain, left, initial encounter active EncounterDiagnosisAct [facility] Encounters Encounter Type Encounter Reason Primary Diagnosis Location Date Ambulatory Nose Complaint Influenza due to other identified influenza virus with other respiratory manifestations [facility] [place] 04/28/2024 Ambulatory [place] [facility] 04/07/2024 Ambulatory Pain in left foot Pain in left foot [facility] 04/07/2024 Care Team Organization Name Specialty Phone Email Start Date End [facility] [place] NO PCP Primary Care 04/28 [facility] 04/17/2024 [place] [facility] NO PCP Primary Care 04/08/2024 [facility] 04/07/2024
--- OUTSIDE RECORDS SUMMARY | 2024-06-09 17:30 | XMS_ITS | Clinical Summary ---
Author Organization [facility] Address [address] [place] [address] Care Team Providers Care Bill Distributor Name Role Phone Pcp, No Primary Care Provider Unavailabl e Allergies Active Allergy Reactions Criticality Noted Date Comments Methimazole Hives Medium 04/07/2024 Encounters Date Type Department Care Team Description 04/07/2024 8:55 AM EST Hospital Encounter [facility] [address] [place] [phone] Lynn Bales PA 04/07/2024 8:05 AM EST Office Visit [facility] [address] [phone] Kyrie Hardy PA-C Cho, Michelle, PA Foot sprain, left, initial encounter (Primary Dx); Left foot pain 04/07/2024 Travel from Last 3 Months Social History Tobacco Use Types Packs/Day Years Used Date Smoking Tobacco: Never Assessed Sex and Gender Information Value Date Recorded Sex Assigned at Not on file Gender Identity Not on file Sexual Orientation Not on file Last Filed Vital Signs Vital Sign Reading Time Taken Comments Blood Pressure 145/93 04/07/2024 8:11 AM EST Pulse 75 04/07/2024 8:11 AM EST Temperature 36.4 ??C (97.6 ??F) 04/07/2024 8:11 AM ES T Respiratory Rate 16 04/07/2024 8:11 AM EST Oxygen Saturation 100% 04/07/2024 8:11 AM EST Inhaled Oxygen Concentration - - Weight 96.2 kg (212 lb) 04/07/2024 8:11 AM EST Height 152.4 cm (5') 04/07/2024 8:11 AM EST Body Mass Index 41.4 04/07/2024 8:11 AM EST Plan of Treatment Health Maintenance Due Date Last Done Comments Hepatitis C Virus Screening 1974 HIV Screening 1987 DTaP/Tdap/Td Vaccines (1 - Tdap) 1993 Hepatitis B Vaccines (1 of 3 - 19+ 3-dose series) 1993 Pap Smear (Ages 21-65) 1995 Mammogram 2014 Colonoscopy 2019 Influenza Vaccine 10/31/2023 01/29/2022, , 2018 COVID-19 Vaccine (5 - 2023-2 5 season) 2023 01/29/2022, 03/06/2021, 05/27/2020, Additional history exists Pneumococcal Vaccines 50+ (1 of 1 - PCV) 02/03/2024 Zoster (Shingles) Vaccine (1 of 2) 02/03/2024 Procedures Procedure Name Priority Date/Time Associated Diagnosis Comments XR FOOT 3+ VIEWS-LEFT STAT 04/07/2024 8:59 AM EST Left foot pain from Last 3 Months Results * XR Foot 3+ views-Left (04/07/2024 [...] healing fracture or dislocation. Plantar calcaneal enthesopathy. Lynn DON DIAGNOSTIC IMAGI NG ORDERABLES from Last 3 Months Care Teams Bill Distributor Relationship Specialty Start Date End Date Pcp, No PCP - General General Medicine 04/07/24
--- OUTSIDE RECORDS SUMMARY | 2024-06-09 17:30 | XMS_ITS | Encounter Summary ---
Author Organization [facility] Address [address] [place] [address] Care Team Providers Care Paper Baling Machine Operator Name Role Phone Pcp, No Primary Care Provider Unavailabl e Encounter Details Date Type Department Care Team (Late st Contact Info) Description 04/07/2024 8:55 AM EST Hospital Encounter [facility] [address] [place] [phone] Lynn Bales PA [address] [place] [address] Social History Tobacco Use Types Packs/Day Years [...] enthesopathy. Lynn DON DIAGNOSTIC IMAGI NG ORDERABLES documented in this encounter Visit Diagnoses Not on filedocumented in this encounter Care Teams Paper Baling Machine Operator Relationship Specialty Start Date End Date Pcp, No PCP - General General Medicine 04/07/24 documented as of this encounter
--- OUTSIDE RECORDS SUMMARY | 2024-06-09 17:30 | XMS_ITS | Clinical Summary ---
Author Organization [facility] Address [address] [place] [phone] Phone Care Team Providers Care Sewing Machine Operator Name Role Phone Evangelina Wallace MD Primary Care Provider [phone] Encounters Date Type Department Care Team Description 04/22/2024 9:00 AM EST - 04/22/2024 11:59 PM EST Hospital Encounter [facility] [address] [place] [phone] Localization-related (focal) (partial) symptomatic epilepsy and epileptic syndromes with complex partial seizures, not intractable, without status epilepticus (CMS/HCC) (Primary Dx) Discharge Disposition: Home or Self Care 04/21/2024 9:00 AM EST - 04/21/2024 11:59 PM EST Hospital Encounter [facility] [address] [place] [phone] Discharge Disposition: Home or Self Care 04/20/2024 7:48 AM EST - 04/20/2024 11:59 PM EST Hospital Encounter [facility] [address] [place] [phone] Discharge Disposition: Home or Self Care from Last 3 Months Social History Tobacco Use Types Packs/Day Years Used Date Smoking Tobacco: Never Smokeless Tobacco: Never Alcohol Use Standard Drinks/Week Comments No 0 (1 standard drink = 0.6 oz pur e alcohol) Comments Unknown Sex and Gender Information Value Date Recorded Sex Assigned at Female 04/17/2024 3:11 PM EST Legal Sex Female 7:57 AM EST Gender Identity Female 04/17/2024 3:11 PM EST Sexual Orientation Not on file Obstetrics History Plan of Treatment Health Maintenance Due Date Last Done Comments Breast Cancer Screening 1974 Hepatitis B Vaccines (1 of 3 - 19+ 3-dose series) 1993 Cervical Cancer Screening: Pap Smear 1995 COVID-19 Vaccine ( - season) 2023 Influenza Vaccine (#1) 2023 7, 01/30/2015, 03/01/2013, Additional history exists Colorectal Cancer Screening: Colonoscopy 01/25/2024 Depression Screening 01/25/2024 HIV Screening 01/25/2024 Hepatitis C Screening 01/25/2024 Social Influencers of Health Screening 01/25/2024 Pneumococcal Vaccine: 50+ Years (1 of 1 - PCV) 02/03/2024 Zoster Vaccines (1 of 2) 02/03/2024 DTaP,Tdap,and Td Vaccines (3 - Td or Tdap) 10/31/2033 11/01/2023, 09/25/2012 HIB Vaccines Aged Out No longer eligi ble based on patient's age to complete this topic HPV Vaccines Aged Out No longer eligi ble based on patient's age to complete this topic Hepatitis A Vaccines Aged Out No long er eligible based on patient's age to complete this topic IPV Vaccines Aged Out No longer eligi ble based on patient's age to complete this topic MMR Vaccines Aged Out No longer eligi ble based on patient's age to complete this topic Meningococcal ACWY Vaccine Aged Out N o longer eligible based on patient's age to complete this topic Meningococcal B Vacine Aged Out No lo nger eligible based on patient's age to complete this topic Pneumococcal Vaccine: Pediatrics (0 to 5 Years) and At-Risk Patients (6 to 64 Years) Aged Out No longer eligible based on patient's age to complete this topic RSV Immunization Patients Under 20 months Aged Out No longer eligible based on patient's age to complete this topic Varicella Vaccines Aged Out No longer eligible based on patient's age to complete this topic Procedures Procedure Name Priority Date/Time Associated Diagnosis Comments CONTINUOUS EEG Routine 04/21/2024 9:25 AM EST Localization-related (focal) (partial) symptomatic epilepsy and epileptic syndromes with complex partial seizures, not intractable, without status epilepticus (CMS/HCC) CONTINUOUS EEG Routine 04/20/2024 9:00 AM EST Localization-related (focal) (partial) symptomatic epilepsy and epileptic syndromes with complex partial seizures, not intractable, without status epilepticus (CMS/HCC) from Last 3 Months Results * Continuous EEG (04/21/2024 9:25 AM EST) Narrative Uri Wallace MD - 05/26/2024 3:13 PM EST The is a recurring study. Please see results on start date. Uri Wallace MD NEUROLOGY ORDERABLES Final Result * Continuous EEG (04/20/2024 9:00 AM EST) Narrative Uri Wallace MD - 04/28/2024 10:33 AM EST This is a 16 channel EEG with an EKG lead. Patient kept diary of each day that was reviewed. Patient reported episodes of glitching . Back ground EEG during wakefulness was mostly symmetrical alpha posteriorly and lower amplitude faster anteriorly. Stage N1 to N3 sleep was recorded during both days. No EEG correlate were noted at the time of patient's symptoms. Aside from that, rare left temporal sharp waves were noted with phase reversal at T3. Impression: Abnormal 48 hr EEG with evidence of left temporal irritability. Uri Wallace MD NEUROLOGY ORDERABLES Final Result from Last 3 Months Insurance [facility] Care Teams Sewing Machine Operator Relationship Specialty Start Date End Date Evangelina Wallace MD [address] [place] [phone] PCP - General Internal Medicine 08/07/18
[2024-06-10 04:43] LABS: Triiodothyronine T3 Total 89 ng/dL (76-181)
== END 2024-06-09 14:17 | disposition home or self-care (01) ==
LOC: HO.LAB 14:16
PROVIDERS: PCP Nurse Practitioner Family; Visit Provider Student in an Organized Health Care Education/Training Program
DX: E03.8 Other specified hypothyroidism (principal)
CPT/HCPCS: 36415; 84439; 84443; 84480

== ENCOUNTER 2024-06-18 08:03 | Outpatient (AMB) | payer OTHER, SELFPAY ==
--- NOTE | 2024-06-18 08:04 | A.OFFVIS_ITS ---
Vital Signs 06/18/24 08:05 Height 5 ft Weight 222 lb 10.67 oz BMI 43.5 BP 120/78 Position Sitting Pulse 63 Pulse Source Pulse Oximeter Pulse Oximetry (%) 98 Oxygen Delivery Method Room Air Intake Visit Reasons: Thyrotoxicosis Intake Note: Patient present today for Thyrotoxicosis office visit. Technical Asst Required: No Accompanied by: Self / Same As Patient Allergies methimazole Allergy (Unknown, Verified 03/18/24 09:49) hives shelfish Allergy (Unknown, Uncoded 12/23/23 09:23) Hives Medication List - Last Reconciled 06/18/24 by Dionne Morin MD dicyclomine 10 mg PO BID 90 days HPI Comments Details: 48 years old female with history of hyperthyroidism with labs now showing subclinical hypothyroidism coming today for follow up. HPI from initial visit 2017: Used to see Dr. Bisi Gonzalez at [facility], underwent thyroid uptake and scan, was told she had Graves disease , was on methimazole for a few months and then developed rash , and then subsequently didnt require it. At thattime was having heat intolerance and palpitations. Thinks she had mononucleosis maybe at the same time. Feeling tired. Being worked up for epilepsy. Dry skin. Gained 8 lbs. Patient currently denies heat or cold intolerance, diarrhea or constipation, palpitation, anxiety, mood changes, changes in appearance of eyes or vision changes, tremors, increased diaphoresis. ?Menstruation is regular. No hot flashes. Patient denies any difficulty swallowing, pain on swallowing or voice changes or difficulty breathing. Patient denies any history of childhood neck radiation. Denies having ever used lithium, amiodarone or biotin supplements. Just takes a multivitamin Patient denies any family history of thyroid cancer or thyroid disease. No history of heart disease or stroke. Interval history 06/18/2024 12/23/2023: TSH high at 6.38, free T4 0.81 normal, TSI antibody normal at 123, TSH receptor antibody elevated at 2.63, TPO antibodies elevated greater than 900 06/09/2024: TSH high at 5.12, free T4 normal at 0.95, total T3 normal at 89 Weight stable. Denies palpitations, tremors, mood changes, constipation and diarrhea Physical exam General: sitting comfortably in no acute distress HEENT: normocephalic/atraumatic, moist oral mucosa Neck: supple, symmetrical, no thyromegaly Cardiac: normal heart sounds Pulm: normal breath sounds B/L, no added breath sounds Abd: not distended, no tenderness Extremities: no edema, no signs of myxedema Neuro: AAO x3, Speech: normal, no facial droop, moving all 4 extremities, no tremors, normal reflexes Laboratory Tests 06/09/23 11/01/23 12/23/23 15:39 12:12 10:10 TSH 5.50 H 4.18 H 6.38 H Free T4 0.95 0.88 0.81 Thyroid Stim Immunoglob 123 Total T3 Thyroid Peroxidase Ab >900 H TSH Receptor Ab 2.63 H 06/09/24 14:25 TSH 5.12 H Free T4 0.95 Thyroid Stim Immunoglob Total T3 89 Thyroid Peroxidase Ab TSH Receptor Ab [facility] Medical History (Updated 03/18/24 @ 10:33 by RUSH Mac) Screen for colon cancer Screening for cervical cancer Encounter for general adult medical examination without abnormal findings Subclinical hypothyroidism Surgical History (Updated 03/18/24 @ 09:54 by ROMMEL Rodríguez) History of placement of ear tubes Status post sleeve gastrectomy Hx of hernia repair Family History (Updated 03/18/24 @ 09:52 by ROMMEL Rodríguez) Mother Colon polyps Social History (Updated 03/18/24 @ 09:52 by ROMMEL Rodríguez) Housing: Condominium Alcohol intake: current Alcohol intake frequency: holidays/special occasions only Patient Tobacco Use Status: Never used Tobacco service: No Current occupational status: employed Current occupation: [employer] Cognitive needs: No Hearing needs: No Vision needs: Yes Physical Exam Vital Signs: BMI result Body Mass Index 43.5 Assessment & Plan Assessment & Plan (1) Subclinical hypothyroidism: Code(s): E03.8 - Other specified hypothyroidism Category: Medical Plan: Patient here for follow up of subclinical hypothyroidism. She does not have any significant symptoms except reporting some tiredness and difficulty losing weight. She does report that back in 2017 she was being evaluated for Graves disease and was started on methimazole which she only took for a few months and then came off it after she developed rash. Subsequently her blood work normalized. She does think she had mononucleosis around the same time, could this possibly-thyroiditis. However her antibodies for TSH receptor and TPO are both positive and rarely that can fluctuate between hyperthyroidism and hypothyroidism. She essentially has autoimmune thyroid disease. Currently given her labs are suggestive of subclinical hypothyroidism, I explained to her that she does not meet criteria for treatment which is TSH greater than 10 or TSH between 6-9 with symptoms of hypothyroidism. At this point we will repeat in 6 months and then again prior to her next follow up in 1 year. Plan: -ordered TSH, free T4 and total T3 to be done in 6 months -follow up in 1 year, with labs to be done prior to follow up as well Plan See above Orders: Orders Thyroid Stimulating Hormone 6 Months E03.8 - Other specified hypothyroidism Triiodothyronine T3 Total 6 Months E03.8 - Other specified hypothyroidism Free T4 (Free Thyroxine) 6 Months E03.8 - Other specified hypothyroidism Patient Instructions: Do blood work in 6 months , we will reach out with results Follow up in 1 year Coding Level of Care Code Est Pt Level 3 (39795) Diagnoses Subclinical hypothyroidism E03.8
[2024-06-18 08:05] VITALS: BP 120/78; PULSE 63; O2SAT 98; BMI 43.5
--- OUTSIDE RECORDS SUMMARY | 2024-06-18 08:09 | XMS_ITS | Clinical Summary ---
Author Organization [facility] Address [address] [place] [phone] Phone Care Team Providers Care Faucet Polisher Name Role Phone Evangelina Wallace MD Primary Care Provider [phone] Encounters Date Type Department Care Team Description 04/22/2024 9:00 AM EST - 04/22/2024 11:59 PM EST Hospital Encounter [facility] [address] [place] [phone] Localization-related (focal) (partial) symptomatic epilepsy and epileptic syndromes with complex partial seizures, not intractable, without status epilepticus (CMS/HCC) (Primary Dx) Discharge Disposition: Home or Self Care 04/21/2024 9:00 AM EST - 04/21/2024 11:59 PM EST Hospital Encounter [facility] [address] [place] [phone] Discharge Disposition: Home or Self Care 04/20/2024 7:48 AM EST - 04/20/2024 11:59 PM EST Hospital Encounter [facility] [address] [place] [phone] Discharge Disposition: Home or Self Care from [...] Final Result from Last 3 Months Insurance [facility] Care Teams Faucet Polisher Relationship Specialty Start Date End Date Evangelina Wallace MD [address] [place] [phone] PCP - General Internal Medicine 08/07/18
--- OUTSIDE RECORDS SUMMARY | 2024-06-18 08:09 | XMS_ITS | Encounter Summary ---
Author Organization [facility] Address [address] [place] [address] Care Team Providers Care Wood Machinist Apprentice Name Role Phone Pcp, No Primary Care Provider Unavailabl e Encounter Details Date Type Department Care Team (Late st Contact Info) Description 04/07/2024 8:55 AM EST Hospital Encounter [facility] [address] [place] [phone] Lynn Bales PA [address] [place] [address] Social History Tobacco Use Types Packs/Day Years [...] on filedocumented in this encounter Care Teams Wood Machinist Apprentice Relationship Specialty Start Date End Date Pcp, No PCP - General General Medicine 04/07/24 documented as of this encounter
--- OUTSIDE RECORDS SUMMARY | 2024-06-18 08:09 | XMS_ITS | Clinical Summary ---
Author Organization [facility] Address [address] [place] [address] Care Team Providers Care Vinyl Dipper Name Role Phone Pcp, No Primary Care Provider Unavailabl e Allergies Active Allergy Reactions Criticality Noted Date Comments Methimazole Hives Medium 04/07/2024 Encounters Date Type Department Care Team Description 04/07/2024 8:55 AM EST Hospital Encounter [facility] [address] [place] [phone] Lynn Bales PA 04/07/2024 8:05 AM EST Office Visit [facility] [address] [phone] Kyrie Hardy PA-C Cho, Michelle, PA Foot [...] ORDERABLES from Last 3 Months Care Teams Vinyl Dipper Relationship Specialty Start Date End Date Pcp, No PCP - General General Medicine 04/07/24
== END 2024-06-18 08:20 | disposition home or self-care (01) ==
LOC: HO.ENCR 08:04
PROVIDERS: PCP Nurse Practitioner Family; Visit Provider Student in an Organized Health Care Education/Training Program
DX: E03.8 Other specified hypothyroidism (principal)
CPT/HCPCS: 99213

== ENCOUNTER 2024-09-11 07:35 | Day surgery (SDC) | payer OTHER, SELFPAY ==
--- OUTSIDE RECORDS SUMMARY | 2024-09-01 16:23 | XMS_ITS | Encounter Summary ---
Author Organization [facility] Address [address] [place] [address] Care Team Providers Care Head Of Commission Department Name Role Phone Pcp, No Primary Care Provider Unavailabl e Encounter Details Date Type Department Care Team (Late st Contact Info) Description 04/07/2024 8:55 AM EST Hospital Encounter [facility] [address] [place] [phone] Lynn Bales PA [address] [place] [address] Social History Tobacco Use Types Packs/Day Years [...] on filedocumented in this encounter Care Teams Head Of Commission Department Relationship Specialty Start Date End Date Pcp, No PCP - General General Medicine 04/07/24 documented as of this encounter
--- NOTE | 2024-09-10 11:30 | HO.ANESPROP2 ---
HPI - Anesthesia Eval Consult details Narrative: 49yo F for Colonoscopy PMFSH Active Problems Active Problems: All Active Problems Abdominal cramping (Acute) Subclinical hypothyroidism (Acute) Hyperlipidemia (Acute) Microalbuminuria (Acute) ADHD (Acute) Seasonal allergies (Acute) Perimenopausal (Acute) Morbid obesity with BMI of 40.0-44.9, adult (Acute) Shellfish allergy (Acute) Mild anemia (Acute) B12 deficiency (Acute) Vitamin D deficiency (Acute) Graves disease (Acute) Family history of epilepsy (Acute) Past Medical History Medical History Screen for colon cancer Screening for cervical cancer Encounter for general adult medical examination without abnormal findings Subclinical hypothyroidism Family History Family History (Updated 03/18/24 @ 09:52 by RMOMEL Rodríguez) Mother Colon polyps Surgical History Surgical History History of placement of ear tubes Status post sleeve gastrectomy Hx of hernia repair Social History Social History (Updated 03/18/24 @ 09:52 by ROMMEL Rodríguez) [facility] Are you a primary career information specialist to a significant other at home: No Do you presently have visiting nurse or other home services: No Alcohol intake: current Alcohol intake frequency: holidays/special occasions only Patient Tobacco Use Status: Never used Tobacco Use of substances other than those prescribed or required for medical reasons: No Have you been hit, kicked, punched, or otherwise hurt by someone within the past year? If so, by whom?: No Are you DNR?: No Advance Directives: No Advance Directives Information Provided: Yes Patient : No FDLMP: 08/12/2024 Poor oral hygiene: No service: No Current occupational status: employed Current occupation: [employer] Cognitive needs: No Hearing needs: No Vision needs: Yes Meds Allergies Allergy/AdvReac Type Severity Reaction Status Date / Time methimazole Allergy Unknown hives Verified 09/11/24 07:51 shelfish Allergy Unknown Hives Uncoded 09/11/24 07:51 Assessment and Plan Assessment Anesthesia Assessment: Chart Reviewed
[2024-09-11 08:02] LABS: UPreg QC Valid YES; Urine Pregnancy NEGATIVE (NEGATIVE)
[2024-09-11 08:04] VITALS: BP 159/74; PULSE 90; RESP 14; TEMP 36.7; O2SAT 98; BMI 43.9
[2024-09-11] MEDS: Lactated Ringers 1,000 ML 100 ML IVCONT (08:08)
--- NOTE | 2024-09-11 08:22 | MHC.SHP ---
Pre-Procedural Eval Section A - 24 Hr Update-Section A only Date of Service: 09/11/24 The patient is an INPATIENT: No The patient has been examined within 24 hours of the surgical procedure. The History & Physical has been completed within 30 days and I have reviewed it.: No Section B - Complete if H&P > 30 days Chief Complaint: screening Relevant Family History (Specify if Yes): Yes Relevant Social History: None Present Medications: see Short Stay Collaborative assessment Medical History: Significant History (Morbid obesity Graves disease/hypothyroid Allergic rhinitis High cholesterol B12 deficiency ADHD Seizures - father and grandfather had epilepsy possible absence seizures History of diverticulitis) History of Previous Operations: Relevant previous surgery/procedure and date(s) (History of placement of ear tubes Status post sleeve gastrectomy Hx of hernia repair) Allergies: Allergies Allergy/AdvReac Type Severity Reaction Status Date / Time methimazole Allergy Unknown hives Verified 09/11/24 07:51 shelfish Allergy Unknown Hives Uncoded 09/11/24 07:51 Review of Systems Sugical H&P ROS: Negative: Constitution, Cardiovascular, Respiratory and Gastrointestinal Exam Surgical H&P Exam: Normal: Heart, Normal: Lungs, Normal: Extremities and Normal: Abdomen Plan Diagnosis/Plan: Unchanged I have reviewed the history and physical and performed a pertinent physical examination on my patient. No changes have occurred unless specified. Time Spent With Patient Time: Total time managing care of this patient today ____ minutes.
--- NOTE | 2024-09-11 09:13 | HO.OPN-COLON ---
Colonoscopy Operative Note Operative Note Date of Service: 09/11/24 Narrative: COLONOSCOPY TILL CECUM WITH SNARE POLYPECTOMY, SUBMUCOSAL INJECTION AND HEMOCLIP PLACEMENT Pre-op diagnosis: Colon cancer screening (1st colon), Family history of colon polyps (mom in her 60's). Post-op diagnosis:? Colon polyps, Diverticulosis Endoscopist:? Yanelis Posada MD Anesthesia:?MAC Consent: Indications for the procedure and potential complications of bleeding, perforation, reaction to medications and missed diagnosis were discussed with the patient and informed consent was obtained. Instrument: Olympus PCF H 190 L variable stiffness pediatric colonoscope Monitoring: Vital signs and clinical assessment, intermittent blood pressure monitoring, continuous EKG monitoring, Pulse oximetry and Carbon Dioxide monitoring were done throughout the procedure. Please see anesthesia flowsheet. Colon withdrawl time was 20 minutes. Procedure: The patient was placed in the left lateral decubitis position and pre-procedure medications were administered. After a digital rectal examination of the ano-rectum, the video colonoscope was inserted into the rectum and advanced through the colon to the cecum. The colonoscope was slowly withdrawn in a retrograde panoramic fashion and the colon mucosa was carefully examined including a retroflexed view of the rectum. Findings and interventions are described below. Procedure Difficulty: without difficulty Findings: Terminal Ileum: Not evaluated Cecum: Normal Ascending Colon: A 12 mm flat polyp in the proximal AC at 90 cms. Polyp was raised with 2 cc of [place] and removed with a stiff hot snare. Margins of polypectomy site were treated with cautery using the snare tip. Transverse Colon: Normal Descending Colon: Moderate diverticulosis Sigmoid Colon: A 15 mm sessile polyp - removed with a hot snare. Polypectomy site was closed with 1 hemoclip. Moderate diverticulosis Rectum: Normal Ano-rectum: Normal Colon preparation: Excellent, after some irrigation. [place] Bowel Preparation Scale Right colon; 3 Transverse colon: 3 Left colon; 3 (0 = Unprepared colon segment with mucosa not seen due to solid stool that cannot be cleared. 1 = Portion of mucosa of the colon segment seen, but other areas of the colon segment not well seen due to staining, residual stool and/or opaque liquid. 2 = Minor amount of residual staining, small fragments of stool and/or opaque liquid, but mucosa of colon segment seen well. 3 = Entire mucosa of colon segment seen well with no residual staining, small fragments of stool or opaque liquid) Impression and Post Procedure Diagnosis: Colonoscopy Findings: Two medium sized polyps were removed Moderate diverticulosis seen in the left colon Plan: I will send a letter with biopsy results. Repeat Colonoscopy in 3-5 years if polyps are adenomatous and due to family history of colon polyps. Above findings were reviewed with the patient and relevant handouts were given and the discharge area.
[2024-09-11 09:18] VITALS: BP 112/66; PULSE 78; RESP 15; TEMP 36.3; O2SAT 97
[2024-09-11 09:33] VITALS: BP 129/90; PULSE 78; RESP 20; TEMP 36.8; O2SAT 97
== END 2024-09-11 09:54 | disposition home or self-care (01) ==
PROVIDERS: Nurse Practitioner; PCP Nurse Practitioner Family; Visit Provider Internal Medicine Gastroenterology
PROC: 0DJD8ZZ Inspection of Lower Intestinal Tract, Via Natural or Artificial Opening Endoscopic (ICD-10-PCS; CPT 45378; principal; 2024-09-11 09:20)
DX: Z12.11 Encounter for screening for malignant neoplasm of colon (principal); Z83.719 Family history of colon polyps, unspecified; D12.5 Benign neoplasm of sigmoid colon; K63.5 Polyp of colon; K57.30 Diverticulosis of large intestine without perforation or abscess without bleeding; R10.9 Unspecified abdominal pain; K59.00 Constipation, unspecified; E78.00 Pure hypercholesterolemia, unspecified; E05.00 Thyrotoxicosis with diffuse goiter without thyrotoxic crisis or storm; E66.01 Morbid (severe) obesity due to excess calories; Z68.41 Body mass index [BMI] 40.0-44.9, adult; E53.8 Deficiency of other specified B group vitamins; Z82.0 Family history of epilepsy and other diseases of the nervous system; Z88.8 Allergy status to other drugs, medicaments and biological substances; Z90.3 Acquired absence of stomach [part of]; Z98.890 Other specified postprocedural states
CPT/HCPCS: 45385; 45381; 81025; 88305; J2003; J2704

== ENCOUNTER → 2024-09-11 07:35 | Outpatient (BNV) | payer OTHER, SELFPAY | PROVIDERS: PCP Nurse Practitioner Family; Visit Provider Internal Medicine Gastroenterology | DX: Z12.11 Encounter for screening for malignant neoplasm of colon (principal); D12.2 Benign neoplasm of ascending colon; D12.5 Benign neoplasm of sigmoid colon; K57.90 Diverticulosis of intestine, part unspecified, without perforation or abscess without bleeding | CPT/HCPCS: 45381; 45385 ==

== ENCOUNTER 2024-11-04 07:53 | Outpatient (AMB) | payer OTHER, SELFPAY ==
--- OUTSIDE RECORDS SUMMARY | 2024-04-07 09:55 | XMS_ITS | Encounter Summary ---
Author Organization [facility] Address [address] [place] [address] Care Team Providers Care Class C Driver Name Role Phone Pcp, No Primary Care Provider Unavailabl e Encounter Details Date Type Department Care Team (Late st Contact Info) Description 04/07/2024 8:55 AM EST Hospital Encounter [facility] [address] [place] [phone] Lynn Bales PA [address] [place] [address] Social History Tobacco Use Types Packs/Day Years [...] on filedocumented in this encounter Care Teams Class C Driver Relationship Specialty Start Date End Date Pcp, No PCP - General General Medicine 04/07/24 documented as of this encounter
--- NOTE | 2024-11-04 07:55 | A.OFFPC_ITS ---
Vital Signs 11/04/24 08:01 Height 5 ft Weight 232 lb 8 oz BMI 45.4 BP 128/76 Blood Pressure Location Lt brachial Position Sitting Respiration 12 Pulse 86 Pulse Source Pulse Oximeter Temp 97.2 F Temp Source Oral Pulse Oximetry (%) 99 Oxygen Delivery Method Room Air Intake Visit Reasons: annual Intake Note: Annual physical. Patient haven't had a menstrual since June. 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: No Is last menstrual period known: Yes Last menstrual period: 07/03/24 Allergies methimazole Allergy (Unknown, Verified 11/04/24 08:22) hives shelfish Allergy (Unknown, Uncoded 11/04/24 07:56) Hives Medication List - Last Reconciled 11/04/24 by BOBBY Roth No Known Home Meds Tobacco use date assessed: 11/04/24 Dental Screening Dental Screen Date: 11/04/24 Did you have a dental visit in the last 12 months?: Yes Did you have a dental problem in the last 6 months where you did not have access to dental care?: No Was dental information given to patient?: Patient has dentist HPI HPI Comments History of Present Illness Details 49-year-old female with Graves disease, obesity, external hemorrhoid, perimenopause, seasonal allergies, ADHD, Vitamin D def, mild anemia, b12 deficiency, microalbuminuria Surgical: gastric sleeve 2017 with hernia repair, ET tubes in childhood, sebaceous cyst removed from back 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 Health Maintenance: ? Colon 08/2024 colon 2 polyp repeat 3-5 years [facility] ? Mammo 08/2024 WNL ? DEXA n/a ? PAP referred for this today to [facility] ? Tdap 2023 Specialists: Derm in the past [facility] GI Endo Neuro at [facility] not happy; new referral to [facility] placed today Optho wears glasses, last eye exam 10/2022 l knee and foot injury s/p fall and stike injury History of Present Illness - The patient is a 49-year-old female pr esenting for a complete physical examination. - Reports perimenopausal symptoms with n o menstruation since June and associated dryness, and abdominal weight gain. - Started Moringa to help, noting improv ed bowel regularity & decreased anxiety. - Possible seizure-like activity with au ra, family history of epilepsy, had consult, not happy there. Wants to see [facility]. - Left knee pain after incident in August , children ran into her knee, now with clicking noises, pain persists post initial improvement. - Left foot pain, fell off ladder at [facility] ist[facility]; had imaging done told no fracture; cont w/ pain. - right ear discomfort reported, starte d 5 weeks ago assoc w/ some nasal congestion and sinus pain; sinus pain is now gone. - Obese BMI > 45 - Thyroid managed by [facility] Endo consult note reviewed. - Vit D def, b12 def, mild anemia suppos ed to take supplements but is not - ADHD is untreated - Ovedue for labs Review of Systems - General: Denies notable fatigue or driss ght changes besides abdominal gain. - Respiratory: Denies shortness of breat h. - Cardiovascular: Denies chest pain. - Gastrointestinal: Reports improved bow el movements with Moringa, denies abdominal pain. - Musculoskeletal: Reports left knee cli cking and pain. - Neurological: Reports possible seizure -like activity, aura documented. - Ear: Reports chronic right ear discomf ort, no ear instrument use. - Skin: Denies new rashes. - Psychological: Reports anxiety improve ment. Physical Exam General: Well developed, well nourished, in no acute distress. Appears stated age. Head: Normocephalic, atraumatic. Eyes: Pupils are equal, round and reactive to light and accommodation. Conjunctivae are clear. Vision grossly normal. Ears: TMs with congestion bilat, AU, EACS WNL Nose: Patent, without discharge. Mouth: There are no ulcers or lesions noted. No inflammation, no post nasal drip, no plaques nor exudates. Neck: Supple, no adenopathy; thyroid palpable, nontender, + PND Lungs: Clear to auscultation bilaterally. No rales, rhonchi or wheeze noted. Good air flow in all mora. Heart: Regular rate and rhythm. No murmurs, click, rubs or gallops are noted. Abdomen: Bowel sounds present in all quadrants. The abdomen is soft, nontender, with no masses or organomegaly noted. No hernias are noted. Musculoskeletal: Joints are nontender, without swelling, redness, or effusions. Range of motion is observed to be normal. Benign exam of L foot and L knee Pulses: Peripheral pulses are equal and palpable bilaterally. Extremities: No clubbing, cyanosis noted. Lymphedema, thickening of skin around anterior ankles Neurologic: Gait and station normal. Cranial Nerves 2-12 intact. Motor strength grossly symmetrical and intact. No sensory loss. Balance normal. Skin: No rashes, ulcers, or lesions noted. Turgor is good. Skin color is good. Hair and nails are without abnormalities. Psych: Normal eye contact, affect and mood appropriate, and normal interactions. Patient is alert and appropriate to context. Results: pending Discussion Notes I discussed with the patient her current symptoms, including menopausal symptoms, potential seizure-like activity, and knee pain. We delved into potential next steps for neurology follow-up and recordings, emphasizing obtaining records. We also discussed referral to orthopedics for knee evaluation & podiatry for L foot. We reviewed Moringa supplementation. We explored different treatment avenues for perimenopausal symptoms, such as hormonal specialists and alternative therapies like gabapentin. She wants to see HEARING DOG TRAINER. Due for pap, too. For the suspected neurologic issues, referral to [facility] main center was recommended. I emphasized the importance of follow- up with recorded seizure-like activity and maintaining up-to-date vaccinations and screenings, alongside ongoing management of chronic conditions. Patient was given time to ask questions. All questions were answered to their satisfaction. Assessment and Plan 1. Obesity - Encourage lifestyle interventions for weight management. - Monitor BMI. 2. 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 - No current treatment adjustments. 3. Perimenopausal Symptoms - Referral to [facility] for hormonal spec ialist. - Discuss gabapentin for symptom control . Declined. 4. Possible Seizure-like Activity - Neurology referral made. - Patient advised to obtain video for co nsultation. 5. Left Knee Pain - Orthopedic referral provided. 6. Right Ear Discomfort - Exam shows no infection. - Recommend saline rinses and allergy ma nagement. 7. Diverticulosis - Continue Moringa for fiber. - Monitor bowel consistency. 8. L foot pain - podiatry referral Due for labs, get done today. Cont care w/ team. RTO 1 year CPE sooner PRN Patient Instructions - Follow up with referrals for neurology , orthopedics, and gynecology. - Ok to Continue using Moringa . - Consider Flonase and Zyrtec for any al lergy symptoms. - Obtain lab tests as directed. - Keep track of knee symptoms and seek c are if worsening. - Report any increased seizure-like epis odes or new symptoms to my office. Consent Patient was informed and verbally consented to the use of an ambient scribe for clinic note documentation during this visit. An additional 30 minutes was spent addressing the problem(s) noted at todays visit. This includes time spent before the visit reviewing the chart, time spent during the visit, and time spent after the visit on documentation reviewing laboratory results, diagnostic imaging, medications, performing a medically necessary evaluation, counseling on diagnoses, care coordination, ordering appropriate tests, ordering appropriate medications, review of tests performed by other providers, reporting test results with the patient, communication with other healthcare providers. [facility] Medical History (Updated 11/04/24 @ 08:45 by [facility] Murphy [facility] Screen for colon cancer Screening for cervical cancer Subclinical hypothyroidism Surgical History (Updated 11/04/24 @ 08:07 by KATHARINA Roth-RICHARD) History of colonoscopy (~08/2024) History of placement of ear tubes Hx of hernia repair Status post sleeve gastrectomy Family History (Updated 03/18/24 @ 09:52 by ROMMEL Rodríguez) Mother Colon polyps Social History (Updated 03/18/24 @ 09:52 by ROMMEL Rodríguez) Housing: Condominium Are you a primary auto care center manager to a significant other at home: No Do you presently have visiting nurse or other home services: No Alcohol intake: current Alcohol intake frequency: holidays/special occasions only Patient Tobacco Use Status: Never used Tobacco e-Cigarette/Vaping Use: Never Used Second Hand Smoke Exposure: No service: No Current occupational status: employed Current occupation: [employer] Cognitive needs: No Hearing needs: No Vision needs: Yes Female Reproductive History Menstrual Date of last menstrual period: 07/03/24 Questionnaire PHQ-9 Over the last 2 weeks, how often have you been bothered by any of the following problems? 1. Little interest or pleasure in doing things: not at all 2. Feeling down, depressed, or hopeless: not at all 3. Trouble falling or staying asleep, or sleeping too much: several days 4. Feeling tired or having little energy: several days 5. Poor appetite or overeating: not at all 6. Feeling bad about yourself - or that you are a failure or have let yourself or your family down: not at all 7. Trouble concentrating on things, such as reading the newspaper or watching television: not at all 8. Moving or speaking so slowly that other people could have noticed. Or the opposite - being so fidgety or restless that you have been moving around a lot more than usual: not at all 9. Thoughts that you would be better off or of hurting yourself in some way: not at all Total score: 2 Depression Screening Interpretation: Negative Depression Screening Done: Yes 08600 - PHQ-9 Billing: Yes Source: Developed by Drs. Anderson Kruger, Heather Masters, Nicola Wong and colleagues, with an educational brady from [employer]. Thrive Questionnaire Date Thrive assessed: 11/04/24 I am a: Patient What is your living situation today?: I have a steady place to live Within the past 12 months, did the food you bought not last and you didn't have the money to get more?: Never true Within the past 12 months, did you worry whether your food would run out before you got money to buy more?: Never true Do you have trouble paying for medicines?: No Do you have trouble getting transportation to medical appointments?: No Do you have trouble paying your heating and electricity bill?: No Do you have trouble taking care of your child, family member or friend?: No Do you have trouble with day-to-day activities such as bathing, preparing meals, shopping, managing finances, etc.?: No Are you currently unemployed and looking for a job?: No Are you interested in more education?: No Please select the resources that you would like help with: None Currently or been in a relationship where the following occur: No concerns reported THRIVE Score: 0 AUDIT C Alcohol Use Questionnaire (AUDIT-C) 1. How often do you have a drink containing alcohol?: Never 3. How often do you have six or more drinks on one occasion?: Never Total Score: 0 Score Reviewed/Action Taken: Yes MEHNAZ-7 AMB Questionnaire MEHNAZ-7 Date MEHNAZ - 7 assessed: 11/04/24 Feeling nervous, anxious, or on edge: 0 = Not at all Not being able to stop or control worryin = Not at all Worrying too much about different things: 0 = Not at all Trouble relaxin = Not at all Being so restless that it is hard to sit still: 0 = Not at all Becoming easily annoyed or irritable: 0 = Not at all Feeling afraid as if something awful might happen: 0 = Not at all Total MEHNAZ-7 score (0-4 normal; 5-9 mild; 10-14 moderate; 15-21 severe): 0 Source: Developed by Drs. Anderson Kruger, Heather Masters, Nicola Wong and colleagues, with an educational brady from [employer]. MEHNAZ-7 Assessment Billing MEHNAZ-7 Assessment Tool: MEHNAZ-7 Assessment 28425 Physical exam (Primary Care) Vital Signs: Last Vital Signs Temp 97.2 F 11/04/24 08:01 Pulse 86 11/04/24 08:01 Resp 12 11/04/24 08:01 BP 128/76 11/04/24 08:01 Pulse Ox 99 11/04/24 08:01 Oxygen Delivery Method Room Air 11/04/24 08:01 BMI result Body Mass Index 45.4 BMI Assessment/Plan discussion: High BMI High, discussed plan: lifestyle Tobacco/Smoking Status: Tobacco use Status Tobacco use date assessed 11/04/24 11/04/24 07:58 Patient Tobacco Use Status Never used Tobacco 11/04/24 07:58 e-Cigarette/Vaping Use Never Used 11/04/24 07:58 PHQ-9: PHQ-9 Score PHQ-9: Total score 2 11/04/24 08:00 Depression Screening Interpretation: Negative Thrive Assessment: Date of Thrive Assessment Date Thrive assessed 11/04/24 11/04/24 07:58 Currently or been in a relationship where the following occur: No concerns reported Coding Level of Care Code Est Pt Level 4 (52560) Est Pt Prev Care 40-64y(49055) Diagnoses Encounter for general adult medical examination without abnormal findings Z00.00 Shellfish allergy Z91.013 Attention deficit hyperactivity disorder (ADHD), predominantly inattentive type F90.0 Attention deficit-hyperactivity disorder type: predominantly inattentive Mixed hyperlipidemia E78.2 Hyperlipidemia type: mixed hyperlipidemia Graves disease E05.00 Subclinical hypothyroidism E03.8 Vitamin D deficiency E55.9 B12 deficiency E53.8 Seasonal allergies J30.2 Microalbuminuria R80.9 Perimenopausal N95.1 Mild anemia D64.9 Family history of epilepsy Z82.0 Observed seizure-like activity R56.9 Knee clicking R29.898 Foot pain, left M79.672 Additional Codes MEHNAZ-7 Assessment Billing - MEHNAZ-7 Assessment Tool: MEHNAZ-7 Assessment 59601 ([id number]) PHQ-9 - 64000 - PHQ-9 Billing: Yes ([id number]) Assessment & Plan Assessment & Plan (1) Encounter for general adult medical examination without abnormal findings: Onset Date: ~11/04/24 Code(s): Z00.00 - Encounter for general adult medical examination without abnormal findings Category: Medical (2) Shellfish allergy: Code(s): Z91.013 - Allergy to seafood Category: Medical (3) ADHD: Code(s): F90.9 - Attention-deficit hyperactivity disorder, unspecified type Category: Medical Qualifiers: Attention deficit-hyperactivity disorder type: predominantly inattentive Qualified Code(s): F90.0 - Attention-deficit hyperactivity disorder, predominantly inattentive type (4) Hyperlipidemia: Code(s): E78.5 - Hyperlipidemia, unspecified Category: Medical Qualifiers: Hyperlipidemia type: mixed hyperlipidemia Qualified Code(s): E78.2 - Mixed hyperlipidemia (5) Graves disease: Code(s): E05.00 - Thyrotoxicosis with diffuse goiter without thyrotoxic crisis or storm Category: Medical (6) Subclinical hypothyroidism: Code(s): E03.8 - Other specified hypothyroidism Category: Medical (7) Vitamin D deficiency: Code(s): E55.9 - Vitamin D deficiency, unspecified Category: Medical (8) B12 deficiency: Code(s): E53.8 - Deficiency of other specified B group vitamins Category: Medical (9) Seasonal allergies: Code(s): J30.2 - Other seasonal allergic rhinitis Category: Medical (10) Microalbuminuria: Code(s): R80.9 - Proteinuria, unspecified Category: Medical (11) Perimenopausal: Comment: Last period 06/2024 Using supplement for vasomotor sx with some effect Code(s): N95.1 - Menopausal and female climacteric states Category: Medical (12) Mild anemia: Code(s): D64.9 - Anemia, unspecified Category: Medical (13) Family history of epilepsy: Comment: dad Code(s): Z82.0 - Family history of epilepsy and other diseases of the nervous system Category: Medical (14) Observed seizure-like activity: Code(s): R56.9 - Unspecified convulsions Category: Medical (15) Knee clicking: Comment: LEFT Code(s): R29.898 - Other symptoms and signs involving the musculoskeletal system Category: Medical (16) Foot pain, left: Code(s): M79.672 - Pain in left foot Category: Medical Plan , Orders: Referrals Podiatry Referral M79.672 - Pain in left foot DATA ENTRY OPERATOR Referral N95.1 - Menopausal and female climacteric states, Z12.4 - Encounter for screening for malignant neoplasm of cervix Neurology Referral R56.9 - Unspecified convulsions, Z82.0 - Family history of epilepsy and other diseases of the nervous system Orthopedics Referral R29.898 - Other symptoms and signs involving the m usculoskeletal system Patient Instructions: Health screenings for women You should visit your health care provider from time to time, even if you are healthy. The purpose of these visits is to: Screen for medical issues Assess your risk for future medical problems Encourage a healthy lifestyle Update vaccinations and other preventive care services Help you get to know your provider in case of an illness Information Even if you feel fine, you should still see your provider for regular checkups. These visits can help you avoid problems in the future. For example, the only way to find out if you have high blood pressure is to have it checked regularly. High blood sugar and high cholesterol levels also may not have any symptoms in the early stages. A simple blood test can check for these conditions. There are specific times when you should see your provider or receive specific health screenings. The [place] Preventive Services Task Force publishes a list of recommended screenings. Below are screening guidelines for women ages 18 to 39. BLOOD PRESSURE SCREENING Your blood pressure should be checked at least once every 3 to 5 years if: Your blood pressure is in the normal range (top number less than 120 mm Hg and bottom number less than 80 mm Hg) You don't have risk factors for high blood pressure Ask your provider if you need your blood pressure checked more often if: The top number is 120 to 129 mm Hg or the bottom number is 70 to 79 mm Hg You have diabetes, heart disease, kidney problems, are overweight, or have certa in other health conditions You have a first-degree relative with high blood pressure You are Black You had high blood pressure during a If the top number is 130 mm Hg or greater or the bottom number is 80 mm Hg or greater, this is considered stage 1 hypertension. Schedule an appointment with your provider to learn how you can reduce your blood pressure. Watch for blood pressure screenings in your area. Ask your provider if you can stop in to have your blood pressure checked. BREAST CANCER SCREENING Experts do not agree about the benefits of breast self-exams in finding breast cancer or saving lives. Talk to your provider about what is best for you. A screening mammogram is not recommended for most women under age 40. Your provider may discuss and recommend mammograms, MRI scans, or ultrasounds if you have an increased risk for breast cancer, such as: A mother or sister who had breast cancer at a young age (most often starting screening earlier than the age the close relative was diagnosed) You carry a high-risk genetic marker CERVICAL CANCER SCREENING Cervical cancer screening should start at age 21 years unless your provider advises otherwise. After the first test: Women ages 21 through 29 should have a Pap test every 3 years. Exoprts do not agree on whether HPV testing is recommended for this age group. Women ages 30 through 65 should be screened with either a Pap test every 3 years or the HPV test every 5 years or both tests every 5 years (called cotesting ). Women who have been treated for precancer (cervical dysplasia) should continue to have Pap tests for 20 years after treatment or until age 65, whichever is longer. If you have had your uterus and cervix removed (total hysterectomy), and you have not been diagnosed with cervical cancer or precancer (high grade cervical neoplasia), you do not need cervical cancer screening. CHOLESTEROL SCREENING Cholesterol screening should begin at: Age 45 for women with no known risk factors for coronary heart disease Age 20 for women with known risk factors for coronary heart disease Repeat cholesterol screening should take place: Every 5 years for women with normal cholesterol levels More often if changes occur in lifestyle (including weight gain and diet) More often if you have diabetes, heart disease, kidney problems, or certain other conditions DIABETES SCREENING You should be screened for diabetes starting at age 35 and then repeated every 3 years if you have no risk factors for diabetes. Screening may need to start earlier and be repeated more often if you have other risk factors for diabetes, such as: You have a first degree relative with diabetes. You are overweight or have obesity. You have high blood pressure, prediabetes, or a history of heart disease. Screening for diabetes should be done if you are planning to become and you are overweight and have other risk factors such as high blood pressure. DENTAL EXAM Go to the dentist once or twice every year for an exam and cleaning. Your dentist will evaluate if you need more frequent visits. EYE EXAM Have an eye exam every 5 to 10 years before age 40. If you have vision problems, have an eye exam every 2 years or more often if recommended by your provider. You should have an eye exam that includes an examination of your retina (back of your eye) at least every year if you have diabetes. IMMUNIZATIONS Commonly needed vaccines include: Flu shot: get one every year. COVID-19 vaccine: ask your provider what is best for you. Tetanus-diphtheria and acellular pertussis (Tdap) vaccine: have one at or after age 19 as one of your tetanus-diphtheria vaccines if you did not receive it as an adolescent. Tetanus-diphtheria: have a booster (or Tdap) every 10 years. Varicella vaccine: receive 2 doses if you never had chickenpox or the varicella vaccine. Hepatitis B vaccine: receive 2, 3, or 4 doses, depending on your exact circumstances. Measles, mumps, and rubella (MMR) vaccine: receive 1 to 2 doses if you are not already immune to MMR. Your provider can tell you if you are immune. Ask your provider about the human papillomavirus (HPV) vaccine if: You have not received the HPV vaccine in the past You have not completed the full vaccine series (you should catch up on this shot) Ask your provider if you should receive other immunizations if you have certain health problems that increase your risk for some diseases such as pneumonia. INFECTIOUS DISEASE SCREENING Women who are sexually active should be screened for chlamydia and gonorrhea up until age 25. Women 25 years and older should be screened for chlamydia and gonorrhea if at high risk. Screening for hepatitis C: All adults ages 18 to 79 should get a one-time test for hepatitis C. people should be screened at every . Screening for human immunodeficiency virus (HIV): All people ages 15 to 65 should get a one-time test for HIV. Depending on your lifestyle and medical history, you may also need to be screened for infections such as syphilis and HIV, as well as other infections. PHYSICAL EXAM All adults should visit their provider from time to time, even if they are healthy. The purpose of these visits is to: Screen for disease Assess your risk of future medical problems Encourage a healthy lifestyle Update your vaccinations and other preventive care services Maintain a relationship with a provider in case of an illness Your height, weight, and BMI should be checked at every exam. During your exam, your provider may ask you about: Depression and anxiety Diet and exercise Alcohol and tobacco use Safety issues, such as using seat belts, smoke detectors, and intimate partner violence Your medicines and risk for interactions SKIN SELF-EXAM Your provider may check your skin for signs of skin cancer, especially if you're at high risk, such as if you: Have had skin cancer before Have close relatives with skin cancer Have a weakened immune system OTHER SCREENING Talk with your provider about colon cancer screening if you have a strong family history of colon cancer or polyps, or if you have had inflammatory bowel disease or polyps yourself. Routine bone density screening of women under 40 is not recommended.
--- OUTSIDE RECORDS SUMMARY | 2024-11-04 07:56 | XMS_ITS | Clinical Summary ---
Author Organization [facility] Address [address] [place] [phone] Phone Care Team Providers Care Plate Inspector Name Role Phone Evangelina Wallace MD Primary Care Provider [phone] Social History Tobacco Use Types Packs/Day Years [...] Pap Smear 1995 COVID-19 Vaccine ( - 2023- season) 2023 Colorectal Cancer Screening: Colonoscopy 01/25/2024 HIV Screening 01/25/2024 Hepatitis C Screening 01/25/2024 Social Influencers of Health Screening 01/25/2024 Pneumococcal Vaccine: 50+ Years (1 of 1 - PCV) 02/03/2024 Zoster Vaccines (1 of 2) 02/03/2024 Depression Screening 04/01/2024 Influenza Vaccine (#1) 2024 7, 01/30/2015, 03/01/2013, Additional history exists DTaP,Tdap,and Td Vaccines (3 - Td or [...] age to complete this topic Meningococcal B Vaccine Aged Out No l onger eligible based on patient's age to complete this topic RSV Immunization Patients Under 20 months Aged Out No longer eligible based on patient's age to complete this topic Varicella Vaccines Aged Out No longer eligible based on patient's age to complete this topic Insurance [facility] Care Teams Plate Inspector Relationship Specialty Start Date End Date Evangelina Wallace MD [address] [place] [address] PCP - General Internal Medicine 08/07/18
--- OUTSIDE RECORDS SUMMARY | 2024-11-04 07:56 | XMS_ITS ---
Author Name [facility] Organization Unknown History of Medication Use Medication Directions Dispensed Refills Start Date End Date Stat us acetaminophen (TYLENOL) 500 MG tablet Take 1-2 tablets (500-1,000 mg total) by mouth every 6 (six) hours as needed for pain (Max 6 tablets/24 hrs) for up to 7 days 04/28/2024 active ibuprofen (ADVIL) 200 MG tablet Take 1 tablet (200 mg total) by mouth every 6 (six) hours as needed for moderate pain or fever for up to 7 days Max 2,400 mg/day. 04/28/2024 active oseltamivir (TAMIFLU) 75 MG capsule Take 1 capsule (75 mg total) by mouth 2 (two) times a day for 5 days 04/28/2024 active sodium chloride (OCEAN) 0.65 % nasal spray Instill 1 spray into each nostril as needed for congestion 01/07/2024 active Allergies Allergen Reaction Severity Comment Documented Date Source Statu s METHIMAZOLE HIVES 04/07/2024 [facility] active LEVOTHYROXINE HIVES 04/24/2017 [facility] acti ve SHELLFISH CONTAINING PRODUCTS HIVES [facility] Problems Problem Status Onset Date Problem Type Date of Resolution Source Elevated BP without diagnosis of hypertension active En[facility]DiagnosisAct [facility] Influenza A active EncounterDiagnosisAct [facility] Middle ear effusion, right active EncounterDiagnosisAct [facility] Fever, unspecified fever cause active En[facility]DiagnosisAct [facility] Acute viral sinusitis active [facility]DiagnosisAct [facility] Acute pharyngitis, unspecified etiology active [facility]DiagnosisAct [facility] Left foot pain active EncounterDiagnosisAct [facility] Foot sprain, left, initial encounter active EncounterDiagnosisAct [facility] Encounters Encounter Type Encounter Reason Primary Diagnosis Location Date Ambulatory Nose Complaint Influenza due to other identified influenza virus with other respiratory manifestations [facility] 04/28/2024 [facility] [place] 04/07/2024 Ambulatory Pain in left foot Pain in left foot [facility] 04/07/2024 Care Team Organization Name Specialty Phone Email Start Date End [facility] 08/12/2024 [facility] NO PCP Primary Care 04/28 [facility] 04/17/2024 06/17/2024 [facility] NO P[facility] Primary Care 04/08/2024 [facility] 04/07/2024
[2024-11-04 08:01] VITALS: BP 128/76; PULSE 86; RESP 12; TEMP 36.2; O2SAT 99; BMI 45.4
== END 2024-11-04 08:38 | disposition home or self-care (01) ==
LOC: HO.HMCFM 07:53
PROVIDERS: PCP Nurse Practitioner Family; Visit Provider Nurse Practitioner Family
DX: Z00.00 Encounter for general adult medical examination without abnormal findings (principal); Z91.013 Allergy to seafood; R56.9 Unspecified convulsions; F90.0 Attention-deficit hyperactivity disorder, predominantly inattentive type; E78.2 Mixed hyperlipidemia; E05.00 Thyrotoxicosis with diffuse goiter without thyrotoxic crisis or storm; E03.8 Other specified hypothyroidism; E55.9 Vitamin D deficiency, unspecified; E53.8 Deficiency of other specified B group vitamins; J30.2 Other seasonal allergic rhinitis; R80.9 Proteinuria, unspecified; N95.1 Menopausal and female climacteric states; D64.9 Anemia, unspecified; Z82.0 Family history of epilepsy and other diseases of the nervous system; R29.898 Other symptoms and signs involving the musculoskeletal system; M79.672 Pain in left foot

== ENCOUNTER → 2024-11-04 07:53 | Outpatient (BNVA) | payer OTHER, SELFPAY | PROVIDERS: PCP Nurse Practitioner Family; Visit Provider Nurse Practitioner Family | DX: Z00.00 Encounter for general adult medical examination without abnormal findings (principal); K64.4 Residual hemorrhoidal skin tags; E05.00 Thyrotoxicosis with diffuse goiter without thyrotoxic crisis or storm; J30.2 Other seasonal allergic rhinitis; F90.9 Attention-deficit hyperactivity disorder, unspecified type; E55.9 Vitamin D deficiency, unspecified; D64.9 Anemia, unspecified; M25.561 Pain in right knee; M79.672 Pain in left foot; H92.01 Otalgia, right ear; K57.90 Diverticulosis of intestine, part unspecified, without perforation or abscess without bleeding; F90.0 Attention-deficit hyperactivity disorder, predominantly inattentive type; E78.2 Mixed hyperlipidemia; E03.8 Other specified hypothyroidism; E53.8 Deficiency of other specified B group vitamins; R80.9 Proteinuria, unspecified; N95.1 Menopausal and female climacteric states; R56.9 Unspecified convulsions; R29.898 Other symptoms and signs involving the musculoskeletal system; E66.9 Obesity, unspecified; Z82.0 Family history of epilepsy and other diseases of the nervous system; Z98.84 Bariatric surgery status; Z68.42 Body mass index [BMI] 45.0-49.9, adult; Z91.013 Allergy to seafood | CPT/HCPCS: 96127 ==

== ENCOUNTER 2024-11-04 08:42 | Outpatient (REF) | payer OTHER, SELFPAY ==
[2024-11-04 11:40] LABS: Hematocrit 36.6 % (37.0-47.0); Hemoglobin 12.1 g/dl (12.0-16.0); Mean Corpuscular HGB Conc 33.1 g/dl (31.0-35.0); Mean Corpuscular Hemoglobin 29.0 pg (27.0-33.0); Mean Corpuscular Volume 87.8 fL (80.0-98.0); NRBC Abs Auto 0.000 X10*3/uL (0.0-0.012); NRBC Pct Auto 0.0 /100WBC (0.0-0.2); Platelet Count 263 X10*3/uL (160-400); Red Blood Count 4.17 X10*6/uL (4.20-5.50); White Blood Count 5.0 X10*3/uL (4.8-10.8)
[2024-11-04 11:55] LABS: Alanine Aminotransferase 14 U/L (0-31); Albumin Level 4.1 g/dL (3.5-5.0); Alkaline Phosphatase 74 U/L (39-117); Anion Gap 12 (12-20); Aspartate Amino Transferase 25 U/L (5-31); Blood Urea Nitrogen 15 mg/dL (9-16); Calcium 9.1 mg/dL (8.4-10.2); Carbon Dioxide 25 mmol/L (22-29); Chloride 108 mmol/L (96-108); Cholesterol 187 mg/dL (<200); Estimated Glomerular Filt Rate > 60; HDL Cholesterol 44 mg/dL (>40); Potassium 4.1 mmol/L (3.3-5.1); Sodium 141 mmol/L (135-145); Total Protein 7.2 g/dL (6.5-8.0); Triglycerides 99 mg/dL (<150)
[2024-11-04 12:22] LABS: Folate 4.7 ng/mL (> or = 4.0); Vitamin B12 219 pg/mL (200-900)
[2024-11-04 12:27] LABS: Microalbum/Creatinine Ratio Ur 5.6 ug/mg cr (<30)
[2024-11-04 12:29] LABS: Free T4 (Free Thyroxine) 0.95 ng/dL (0.71-1.85); Thyroid Stimulating Hormone 1.62 uIU/mL (0.32-4.0)
== END 2024-11-04 08:43 | disposition home or self-care (01) ==
LOC: HO.WFDLDS 08:42
PROVIDERS: Student in an Organized Health Care Education/Training Program; Visit Provider Nurse Practitioner Family
DX: E03.8 Other specified hypothyroidism (principal); E78.5 Hyperlipidemia, unspecified; R80.9 Proteinuria, unspecified; D64.9 Anemia, unspecified; E53.8 Deficiency of other specified B group vitamins; E55.9 Vitamin D deficiency, unspecified
CPT/HCPCS: 36415; 80053; 80061; 82043; 82306; 82570; 82607; 82746; 84439; 84443; 84480; 85027

== ENCOUNTER 2024-12-15 14:42 | Outpatient (AMB) | payer OTHER, SELFPAY ==
--- OUTSIDE RECORDS SUMMARY | 2024-04-07 09:55 | XMS_ITS | Encounter Summary ---
Author Organization [facility] Address [address] [place] [address] Care Team Providers Care Acid Cutter Name Role Phone Pcp, No Primary Care Provider Unavailabl e Encounter Details Date Type Department Care Team (Late st Contact Info) Description 04/07/2024 8:55 AM EST Hospital Encounter [facility] [address] [place] [phone] Lynn Bales PA [address] [place] [address] Social History Tobacco Use Types Packs/Day Years Used Date Smoking Tobacco: Never Assessed Comments Unknown Sex and Gender Information Value Date Recorded Sex Assigned at Not on file Legal Sex Female 8:01 AM EST Gender Identity Not on file Sexual Orientation Not on file documented as [...] on filedocumented in this encounter Care Teams Acid Cutter Relationship Specialty Start Date End Date Pcp, No PCP - General General Medicine 04/07/24 documented as of this encounter
[2024-12-15 14:53] VITALS: BMI 45.5
--- NOTE | 2024-12-15 14:53 | A.OFFVIS_ITS ---
Vital Signs 3 12/15/24 14:53 Height 5 ft Weight 233 lb BMI 45.5 Intake Visit Reasons: pain in left foot Intake Note: Elvira is a 49 year old female who presents to the office today as a new patient visit referred by her PCP Ana Murphy for pain in her left foot. Patient mentions she had fallen off a 3 step ladder back in march at her home and she injured both feet,she then went to urgent care where they stated she had no fractures. She reports her left foot is still painful and impacts her ability to work her two jobs but her right foot is improving. Allergies methimazole Allergy (Unknown, Verified 11/04/24 08:22) hives shelfish Allergy (Unknown, Uncoded 11/04/24 07:56) Hives Medication List - Last Reconciled 12/15/24 by Caterina Hurtado DPM meloxicam 7.5 mg PO DAILY HPI Comments Details: The patient is a 49-year-old female with a past medical history as seen below presenting with left foot and ankle pain and instability following a fall from a ladder. The incident occurred in March 2024, resulting in injuries to both feet, but the right foot has since healed, leaving only the left foot and ankle with persistent pain. The patient describes the pain as sharp and located primarily to the left ankle, with soreness extending to the dorsum of the midfoot. 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 She experiences a sensation of instability, feeling as though the ankle might give out, especially after long work hours. The patient has been using [id number] medications like ibuprofen and acetaminophen for pain management, but these have provided limited relief. She denies any other pedal concerns. She denies any current nausea, vomiting, fever, or chills. [facility] Medical History (Updated 12/15/24 @ 18:10 by Caterina Hurtado DPM) Chronic instability of ankle Left ankle sprain Left ankle pain Arthritis of left ankle Screen for colon cancer Screening for cervical cancer Subclinical hypothyroidism Surgical History (Updated 11/04/24 @ 08:07 by Ana Murphy, [facility] History of colonoscopy (~08/2024) History of placement of ear tubes Status post sleeve gastrectomy Hx of hernia repair Family History (Updated 03/18/24 @ 09:52 by ROMMEL Rodríguez) Mother Colon polyps Social History (Updated 03/18/24 @ 09:52 by ROMMEL Rodríguez) [facility] Are you a primary palliative care nurse practitioner to a significant other at home: No Do you presently have visiting nurse or other home services: No Alcohol intake: current Alcohol intake frequency: holidays/special occasions only Patient Tobacco Use Status: Never used Tobacco e-Cigarette/Vaping Use: Never Used Second Hand Smoke Exposure: No service: No Current occupational status: employed Current occupation: [employer] Cognitive needs: No Hearing needs: No Vision needs: Yes Review of Systems Const Details: - Musculoskeletal: Reports sharp left ankle pain with radiating soreness on the top of the midfoot, and instability. All systems reviewed & are unremarkable except as noted in HPI and below Physical Exam Vital Signs: BMI result Body Mass Index 45.5 Extrem Other: Left lower extremity focused physical exam: Derm: No open lesions abrasions or wounds noted. No hyperkeratotic lesions noted. No ecchymosis or erythema noted. No clinical signs of infection. Vascular: DP/PT pulses palpable. Capillary refill time less than 3 seconds. Mild edema noted to the left ankle and dorsum of the foot. Temperature gradient warm to warm. Pedal hair absent. No varicosities noted. Neuro: Protective sensation is grossly intact. MSK: Pain on palpation to the lateral aspect of the left ankle along the anterior gutter with pain radiating to the medial gutter. Pain on palpation to the dorsum of the midfoot in the lateral aspect. Ankle range of motion slightly limited due to pain, pain worsened upon ankle plantar flexion, eversion, and inversion. Negative anterior drawer test. Mildly antalgic gait noted. Ankle/foot/toe images: 2 1. Results Reviewed Results Reviewed: Ordered left foot and ankle three views weight-bearing x-rays to be performed prior to next visit. Assessment & Plan Assessment & Plan (1) Arthritis of left ankle: Code(s): M19.072 - Primary osteoarthritis, left ankle and foot Category: Medical (2) Left ankle pain: Code(s): M25.572 - Pain in left ankle and joints of left foot Category: Medical Qualifiers: Chronicity: chronic Qualified Code(s): M25.572 - Pain in left ankle and joints of left foot; G89.29 - Other chronic pain (3) Left ankle sprain: Code(s): S93.402A - Sprain of unspecified ligament of left ankle, initial encounter Category: Medical Qualifiers: Encounter type: initial encounter Involved ligament of ankle: u nspecified ligament Qualified Code(s): S93.402A - Sprain of unspecified ligament of left ankle, initial encounter (4) Chronic instability of ankle: Code(s): M25.373 - Other instability, unspecified ankle Category: Medical (5) Foot pain, left: Code(s): M79.672 - Pain in left foot Category: Medical Plan Patient was informed and verbally consented to the use of an ambient scribe for clinic note documentation during this visit. I discussed with the patient the likely diagnosis of left ankle arthritis and chronic ankle instability with possible ligamentous injury. We talked about the use of an ankle brace for stability and the prescription of meloxicam for pain management. I explained the need for x-rays to rule out fractures and the potential for an MRI if further investigation is needed. The patient was advised to return in two weeks for follow-up, and we discussed the possibility of physical therapy or surgical intervention if conservative measures fail. 1. Left Ankle Pain - Provided an ankle brace to provide stability and support, particularly during activities. - X-rays of the foot and ankle were ordered to assess for fractures or arthritis. - Meloxicam was prescribed for pain management, as it is stronger than [id number] options previously used by the patient. 2. Ankle Instability - The ankle brace is expected to help with the instability by providing additional support. - If symptoms persist or worsen, further evaluation with MRI may be considered to assess ligamentous integrity. Advised patient to wear supportive shoe gear and to avoid barefoot walking. Advised patient to wear ankle brace in patient may be weight-bearing as tolerated using the brace. Patient is to return to the office in 2 weeks for further re-evaluation of symptoms. Orders: Orders 2 XR foot LT min 3V Today M19.072 - Primary osteoarthritis, left ankle and foot, M25.373 - Other instability, unspecified ankle, M25.572 - Pain in left ankle and joints of left foot, M79.672 - Pain in left foot, S93.402A - Sprain of unspecified ligament of left ankle, initial encounter XR ankle LT min 3V Today M19.072 - Primary osteoarthritis, left ankle and foot, M25.373 - Other instability, unspecified ankle, M25.572 - Pain in left ankle and joints of left foot, S93.402A - Sprain of unspecified ligament of left ankle, initial encounter Medications: New 2 meloxicam 7.5 mg PO DAILY 30 tabs 0RF Left ankle pain M19.072 - Primary osteoarthritis, left ankle and foot, M25.373 - Other instability, unspecified ankle, M25.572 - Pain in left ankle and joints of left foot, S93.402A - Sprain of unspecified ligament of left ankle, initial encounter Coding Level of Care Code New Pt Level 4 (18878) Diagnoses Arthritis of left ankle M19.072 Chronic pain of left ankle M25.572; G89.29 Chronicity: chronic Sprain of left ankle, unspecified ligament, initial encounter S93.402A Encounter type: initial encounter Involved ligament of ankle: unspecified ligament Chronic instability of ankle M25.373 Foot pain, left M79.672 Time Spent (min) 48
--- OUTSIDE RECORDS SUMMARY | 2024-12-15 18:23 | XMS_ITS | Clinical Summary ---
Author Organization [facility] Address [address] [place] [id number] Care Team Providers Care Cover Creaser Name Role Phone Pcp, No Primary Care Provider Unavailabl e Allergies Active Allergy Reactions Criticality Noted Date Comments Methimazole Hives Medium 04/07/2024 Encounters Date Type Department Care Team Description 11/06/2024 Transcribe Orders GENERIC EXTERNAL DATA DEPARTMENT Ana Murphy, [facility] Family history of epilepsy (Primary Dx); Convulsions, unspecified convulsion type (HCC) from Last 3 Months Social History Tobacco [...] 75 04/07/2024 8:11 AM EST Temperature 36.4 C (97.6 F) 04/07/2024 8:11 AM EST Respiratory Rate 16 04/07/2024 8:11 AM EST [...] (Ages 21-65) 1995 Mammogram 2014 Colonoscopy 2019 Pneumococcal Vaccines 50+ (1 of 1 - PCV) 02/03/2024 Zoster (Shingles) Vaccine (1 of 2) 02/03/2024 Influenza Vaccine 10/30/2024 01/29/2022, , 2018 COVID-19 Vaccine (5 - 2024-2 6 season) 2024 01/29/2022, 03/06/2021, 05/27/2020, Additional history exists Insurance [facility] Care Teams Cover Creaser Relationship Specialty Start Date End Date Pcp, No PCP - General General Medicine 04/07/24
--- OUTSIDE RECORDS SUMMARY | 2024-12-15 18:23 | XMS_ITS | Clinical Summary ---
Author Organization [facility] Address [address] [place] [phone] Phone Care Team Providers Care Patent Searcher Name Role Phone Evangelina Wallace MD Primary Care Provider [phone] Social History Tobacco Use Types Packs/Day Years [...] 1993 Cervical Cancer Screening: Pap Smear 1995 Colorectal Cancer Screening: Colonoscopy 01/25/2024 HIV Screening 01/25/2024 Hepatitis C Screening 01/25/2024 Social Influencers of Health Screening 01/25/2024 Pneumococcal Vaccine: 50+ Years (1 of 1 - PCV) 02/03/2024 Zoster Vaccines (1 of 2) 02/03/2024 Depression Screening 04/01/2024 COVID-19 Vaccine ( - season) 2024 Influenza Vaccine (#1) 2024 7, 01/30/2015, 03/01/2013, [...] patient's age to complete this topic Insurance [facility] Care Teams Patent Searcher Relationship Specialty Start Date End Date Evangelina Wallace MD [address] [place] [phone] PCP - General Internal Medicine 08/07/18
== END 2024-12-15 15:35 | disposition home or self-care (01) ==
LOC: HO.HPODS 14:43
PROVIDERS: PCP Nurse Practitioner Family; Visit Provider Student in an Organized Health Care Education/Training Program
DX: M19.072 Primary osteoarthritis, left ankle and foot (principal); M25.572 Pain in left ankle and joints of left foot; G89.29 Other chronic pain; S93.402A Sprain of unspecified ligament of left ankle, initial encounter; M25.373 Other instability, unspecified ankle; M79.672 Pain in left foot
CPT/HCPCS: 99204

== ENCOUNTER 2024-12-22 13:29 | Outpatient (REF) | payer OTHER, SELFPAY ==
--- OUTSIDE RECORDS SUMMARY | 2024-04-07 09:55 | XMS_ITS | Encounter Summary ---
Author Organization [facility] Address [address] [place] [address] Care Team Providers Care Health Researcher Name Role Phone Pcp, No Primary Care Provider Unavailabl e Encounter Details Date Type Department Care Team (Late st Contact Info) Description 04/07/2024 8:55 AM EST Hospital Encounter [facility] [address] [place] [phone] Lynn Bales PA [address] [place] [address] Social History Tobacco Use Types Packs/Day Years Used Date Smoking Tobacco: Never Assessed Comments Unknown Sex and Gender Information Value Date Recorded Sex Assigned at Female 12/16/2024 8:08 AM EDT Legal Sex Female 8:01 AM EST Gender Identity Female 12/16/2024 8:08 AM EDT Sexual Orientation Not on file documented as of this encounter Plan of Treatment Upcoming Encounters Date Type Department Care Team (Late st Contact Info) Description 01/15/2025 9:40 AM EDT Office Visit [id number] [address] [phone] Castro Tran MD [address] [address] documented as of this encounter Procedures Procedure [...] on filedocumented in this encounter Care Teams Health Researcher Relationship Specialty Start Date End Date Pcp, No PCP - General General Medicine 04/07/24 documented as of this encounter
--- NOTE | ~2024-12-22 | XR_ITS ---
EXAMINATION: XR ANKLE, LEFT CLINICAL INFORMATION: M19.072 - Primary osteoarthritis, left ankle and foot COMPARISON: None available. TECHNIQUE: AP, lateral, and mortise views of the left ankle. FINDINGS: No fracture, dislocation, or suspicious bone lesion. There is normal alignment. Ankle mortise is intact. The talar dome is normal. There are mild osteoarthritic changes in the tibiotalar and fibulotalar joints. There is a moderate-sized plantar calcaneal spur. There is a small dorsal spur. No ankle joint effusion Soft tissues appear grossly normal. XR/XR ankle LT min 3V IMPRESSION: 1. No acute findings of the left ankle. 2. 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 Electronically signed by: Arun Abarca MD 12/22/2024 02:43 PM EDT
--- NOTE | ~2024-12-22 | XR_ITS ---
EXAMINATION: XR FOOT, LEFT CLINICAL INFORMATION: S93.402A - Sprain of unspecified ligament of left ankle, initial encounter COMPARISON: None available. TECHNIQUE: AP, lateral, and oblique views of the left foot. FINDINGS: No fracture, dislocation, or suspicious bone lesion. Normal alignment. Mild degenerative arthritis in the first MCP joint. Joint spaces otherwise preserved. Normal plantar arch. There is a moderate-sized plantar calcaneal spur. There are no soft tissue abnormalities. XR/XR foot LT min 3V IMPRESSION: 1. No acute bony abnormalities of the left foot. 2. Mild degenerative arthritis in the first MTP joint. Electronically signed by: Arun Abarca MD 12/22/2024 02:15 PM EDT
--- NOTE | ~2024-12-22 | XR_ITS ---
EXAMINATION: XR KNEE, LEFT CLINICAL INFORMATION: M25.562 - Pain in left knee COMPARISON: None available. TECHNIQUE: Three views of the left knee. FINDINGS: No fracture, dislocation, or suspicious bone lesion. Normal alignment. Mild to moderate medial and patellofemoral compartment osteoarthritis is evident. There is mild spurring of the tibial spines. There is no evidence of joint effusion. There are no soft tissue abnormalities. XR/XR knee LT 3V IMPRESSION: 1. No acute findings in the left knee. No joint effusion. 2. Mild to moderate osteoarthritis in the medial and patellofemoral compartments. Electronically signed by: Arun Abarca MD 12/22/2024 02:16 PM EDT
--- OUTSIDE RECORDS SUMMARY | 2024-12-22 16:37 | XMS_ITS | Clinical Summary ---
Author Organization [facility] Address [address] [place] [phone] Phone Care Team Providers Care Ordering Box Operator Name Role Phone Evangelina Wallace MD Primary Care Provider [phone] Social History Tobacco Use Types Packs/Day Years [...] patient's age to complete this topic Insurance [facility] Care Teams Ordering Box Operator Relationship Specialty Start Date End Date Evangelina Wallace MD [address] [place] [phone] PCP - General Internal Medicine 08/07/18
--- OUTSIDE RECORDS SUMMARY | 2024-12-22 16:37 | XMS_ITS | Clinical Summary ---
Author Organization [facility] Address [address] [place] [address] Care Team Providers Care Creel Selector Name Role Phone Pcp, No Primary Care Provider Unavailabl e Allergies Active Allergy Reactions Criticality Noted Date Comments Methimazole Hives Medium 04/07/2024 Encounters Date Type Department Care Team Description 11/06/2024 Transcribe Orders GENERIC EXTERNAL DATA DEPARTMENT Ana Murphy APRN Family history of epilepsy (Primary Dx); Convulsions, unspecified convulsion type (HCC) from Last 3 Months Social History Tobacco Use Types Packs/Day Years Used Date Smoking Tobacco: Never Assessed Comments Unknown Sex and Gender Information Value Date Recorded Sex Assigned at Female 12/16/2024 8:08 AM EDT Legal Sex Female 8:01 AM EST Gender Identity Female 12/16/2024 8:08 AM EDT Sexual Orientation Not on file Last Filed [...] 04/07/2024 8:11 AM EST Plan of Treatment Upcoming Encounters Date Type Department Care Team (Late st Contact Info) Description 01/15/2025 9:40 AM EDT Office Visit [id number] [address] [facility] [address] [place] [address] Castro Tran MD [address] [address] Health Maintenance Due Date Last Done Comments [...] 05/27/2020, Additional history exists Insurance [facility] Care Teams Creel Selector Relationship Specialty Start Date End Date Pcp, No PCP - General General Medicine 04/07/24
== END 2024-12-22 13:30 | disposition home or self-care (01) ==
LOC: HO.HOSX 13:29
PROVIDERS: Absent Provider Student in an Organized Health Care Education/Training Program; PCP Nurse Practitioner Family; Visit Provider Orthopaedic Surgery
DX: S83.242A Other tear of medial meniscus, current injury, left knee, initial encounter (principal); S93.402A Sprain of unspecified ligament of left ankle, initial encounter; M19.072 Primary osteoarthritis, left ankle and foot; M25.572 Pain in left ankle and joints of left foot; M79.672 Pain in left foot; W50.2XXA Accidental twist by another person, initial encounter
CPT/HCPCS: 73562; 73610; 73630

== ENCOUNTER → 2024-12-22 13:34 | Outpatient (BNV) | payer OTHER, SELFPAY | PROVIDERS: Absent Provider Student in an Organized Health Care Education/Training Program; PCP Nurse Practitioner Family; Visit Provider Radiology Diagnostic Radiology | DX: M17.12 Unilateral primary osteoarthritis, left knee (principal); M19.072 Primary osteoarthritis, left ankle and foot; M77.32 Calcaneal spur, left foot | CPT/HCPCS: 73562; 73610; 73630 ==

== ENCOUNTER 2024-12-22 13:58 | Outpatient (AMB) | payer OTHER, SELFPAY ==
--- NOTE | 2024-12-22 14:19 | MHC.OFFVIS ---
Vital Signs 12/22/24 14:27 Height 5 ft 3 in Weight 233 lb BMI 41.3 Intake Visit Reasons: Left knee pain and giving way Intake Note: Elvira is a 49 year old female who presents with complaints of left knee pain and giving way. 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 She twisted her knee and had acute onset of pain. She did not fall to the ground. The patient also reports left foot and ankle pain. She is due to see her ornamental iron erector in the near future. She has taken meloxicam which gives her mild relief. Allergies methimazole Allergy (Unknown, Verified 12/22/24 14:28) hives shelfish Allergy (Unknown, Uncoded 11/04/24 07:56) Hives Medication List - Last Reconciled 12/22/24 by Grant Rachel MD meloxicam 7.5 mg PO DAILY PFSH Medical History (Updated 12/22/24 @ 15:47 by Grant Rachel MD) Chronic instability of ankle Left ankle sprain Left ankle pain Arthritis of left ankle Screen for colon cancer Screening for cervical cancer Subclinical hypothyroidism Surgical History (Updated 11/04/24 @ 08:07 by Ana Murphy [facility]) History of colonoscopy (~08/2024) History of placement of ear tubes Status post sleeve gastrectomy Hx of hernia repair Family History (Updated 03/18/24 @ 09:52 by ROMMEL Rodríguez) Mother Colon polyps Social History (Updated 03/18/24 @ 09:52 by ROMMEL Rodríguez) Housing: Condominium Are you a primary intensive care specialist to a significant other at home: No Do you presently have visiting nurse or other home services: No Alcohol intake: current Alcohol intake frequency: holidays/special occasions only Patient Tobacco Use Status: Never used Tobacco e-Cigarette/Vaping Use: Never Used Second Hand Smoke Exposure: No service: No Current occupational status: employed Current occupation: [employer] Cognitive needs: No Hearing needs: No Vision needs: Yes Physical Exam Vital Signs: BMI result Body Mass Index 41.3 Const Other: Well-nourished well-developed very friendly female awake alert and oriented x3 in no acute distress Extrem Other: Left knee examination shows a minimal effusion, mild crepitus with range of motion, tenderness along her medial joint line, positive Rick's test, no instability Results Reviewed Results Reviewed: X-rays of the patient's left knee show mild diffuse degenerative changes, no acute bony abnormalities Assessment & Plan Assessment & Plan (1) Tear of medial meniscus of left knee: Code(s): S83.242A - Other tear of medial meniscus, current injury, left knee, initial encounter Category: Medical Plan Ms. Holliday presents with left knee pain and mechanical symptoms most likely due to a medial meniscus tear. Thus, I will send her for an MRI of her left knee for further evaluation. I will see her back once the MRI is completed to discuss the findings and treatment options. She will continue with her activity modifications in the meantime. I spent 21 minutes in reviewing the patient's records and imaging studies, seeing the patient and documenting in the medical record. Orders: Orders XR knee LT 3V Today M25.562 - Pain in left knee Coding Level of Care Code New Pt Level 3 (04758) Complex EM visit Add On G2211 Diagnoses Tear of medial meniscus of left knee S83.242A
[2024-12-22 14:27] VITALS: BMI 41.3
== END 2024-12-22 14:41 | disposition home or self-care (01) ==
LOC: HO.HOS 13:58
PROVIDERS: PCP Nurse Practitioner Family; Visit Provider Orthopaedic Surgery
DX: S83.242A Other tear of medial meniscus, current injury, left knee, initial encounter (principal)
CPT/HCPCS: 99203; G2211

== ENCOUNTER 2024-12-29 07:43 | Outpatient (AMB) | payer OTHER, SELFPAY ==
--- OUTSIDE RECORDS SUMMARY | 2024-04-07 09:55 | XMS_ITS | Encounter Summary ---
Author Organization [facility] Address [address] [place] [address] Care Team Providers Care Epic Cadence Analyst Name Role Phone Pcp, No Primary Care Provider Unavailabl e Encounter Details Date Type Department Care Team (Late st Contact Info) Description 04/07/2024 8:55 AM EST Hospital Encounter [facility] [address] [place] [phone] Lynn Bales PA [address] [place] [address] Social History Tobacco Use Types Packs/Day Years [...] EDT Office Visit [id number] [address] [phone] Castro Tran MD [address] [address] documented as of this encounter Procedures Procedure [...] on filedocumented in this encounter Care Teams Epic Cadence Analyst Relationship Specialty Start Date End Date Pcp, No PCP - General General Medicine 04/07/24 documented as of this encounter
--- OUTSIDE RECORDS SUMMARY | 2024-12-29 07:53 | XMS_ITS | Clinical Summary ---
Author Organization [facility] Address [address] [place] [address] Care Team Providers Care Machinist Apprentice Wood Name Role Phone Pcp, No Primary Care [...] EDT Office Visit [id number] [address] [facility] [address] [place] [address] Castro Tran MD [address] [address] Health Maintenance Due Date Last Done Comments [...] 01/29/2022, 03/06/2021, 05/27/2020, Additional history exists Insurance [facility] Care Teams Machinist Apprentice Wood Relationship Specialty Start Date End Date Pcp, No PCP - General General Medicine 04/07/24
--- OUTSIDE RECORDS SUMMARY | 2024-12-29 07:53 | XMS_ITS | Clinical Summary ---
Author Organization [facility] Address [address] [place] [phone] Phone Care Team Providers Care Teacher Adult Education Name Role Phone Evangelina Wallace MD Primary Care Provider [phone] Social History Tobacco Use Types Packs/Day Years [...] patient's age to complete this topic Insurance [facility] Care Teams Teacher Adult Education Relationship Specialty Start Date End Date Evangelina Wallace MD [address] [place] [phone] PCP - General Internal Medicine 08/07/18
--- NOTE | 2024-12-29 08:00 | MHC.OFFVIS ---
Vital Signs 12/29/24 08:03 Height 5 ft 3 in Weight 233 lb BMI 41.3 Intake Visit Reasons: Follow Up pain in left foot Intake Note: Elvira is a 49 year old female who presents today as a follow up on her arthritis of her left ankle. Pt states she only uses her lace up brace moderately when you're at work. She mentions the brace is uncomfortable due to the strap digging into the skin. Pt states her pain has remained the same. Ankle xray IMPRESSION: 1. No acute findings of the left ankle. 2. 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 Foot X ray IMPRESSION: 1. No acute bony abnormalities of the left foot. 2. Mild degenerative arthritis in the first MTP joint. Allergies methimazole Allergy (Unknown, Verified 12/29/24 08:04) hives shelfish Allergy (Unknown, Uncoded 11/04/24 07:56) Hives Medication List - Last Reconciled 12/29/24 by Caterina Hurtado DPM lidocaine 5% 2 patches topical DAILY meloxicam 7.5 mg PO DAILY HPI Comments Details: The patient is a 49-year-old female presenting for follow-up of ongoing left foot and ankle pain. Patient states she has been taking the meloxicam in using the brace with mild pain relief. She denies any new pedal injuries. Patient states the pain is localized around the plantar lateral aspect of the foot radiating to the dorsal aspect of the midfoot. Patient states she also experiences pain to the ankle as well as locking to the ankle primarily to the posterior aspect. She reports difficulty with the brace due to discomfort and has been advised to try different strapping methods or use it selectively during high activity periods. The patient has expressed significant lifestyle limitations due to pain, impacting her ability to engage in activities and work. She denies any other pedal concerns. Patient states she is currently recovering from the sinus infection. [facility] Medical History (Updated 12/29/24 @ 08:49 by Caterina Hurtado DPM) Insertional tendinopathy of left Achilles tendon Other enthesopathy of left foot and ankle Calcaneal spur, left foot Impingement of left ankle joint Arthritis of left foot Chronic instability of ankle Left ankle sprain Left ankle pain Arthritis of left ankle Screen for colon cancer Screening for cervical cancer Subclinical hypothyroidism Surgical History (Updated 11/04/24 @ 08:07 by Ana Murphy, [facility]) History of colonoscopy (~08/2024) History of placement of ear tubes Status post sleeve gastrectomy Hx of hernia repair Family History (Updated 03/18/24 @ 09:52 by ROMMEL Rodríguez) Mother Colon polyps Social History (Updated 03/18/24 @ 09:52 by ROMMEL Rodríguez) Housing: [facility] Are you a primary care connector to a significant other at home: No Do you presently have visiting nurse or other home services: No Alcohol intake: current Alcohol intake frequency: holidays/special occasions only Patient Tobacco Use Status: Never used Tobacco e-Cigarette/Vaping Use: Never Used Second Hand Smoke Exposure: No service: No Current occupational status: employed Current occupation: [employer] Cognitive needs: No Hearing needs: No Vision needs: Yes Review of Systems Const Details: - Musculoskeletal: Reports left foot pain radiating on the top of the midfoot, left ankle pain and instability. All systems reviewed & are unremarkable except as noted in HPI and below Physical Exam Vital Signs: BMI result Body Mass Index 41.3 Extrem Other: Left lower extremity focused physical exam: Derm: No open lesions abrasions or wounds noted. No hyperkeratotic lesions noted. No ecchymosis or erythema noted. No clinical signs of infection. No maceration noted. Vascular: DP/PT pulses palpable. Capillary refill time less than 3 seconds. Minimal edema noted to the left ankle and dorsum of the midfoot. Temperature gradient warm to warm. Pedal hair absent. No varicosities noted. Neuro: Protective sensation is grossly intact. MSK: Pain on palpation to the lateral aspect of the foot radiating to the dorsolateral aspect of the midfoot. Ankle range of motion reduced noted with plantar flexion. No crepitus noted. Negative anterior drawer test. Antalgic gait noted. MMT 4/5. Pain on palpation to the ankle diffuse, worse posteriorly. Results Reviewed Results Reviewed: Podiatry Read of Left foot three-view weight-bearing x-rays (12/22/2024): Mild HAV noted with mild hammertoe deformities noted 2 through 5 toes. Osteophytic changes noted diffusely with joint space narrowing noted to the midfoot. Joint space narrowing noted to the 1st MPJ. Calcaneal spur noted plantarly and posteriorly. No acute fractures or dislocations. Podiatry Read of Left ankle three-view weight-bearing x-rays (12/22/2024): Mild osteophytic changes noted to the medial malleolus lateral malleolus and talus. Bone spur noted to the posterior aspect of the talus consistent with posterior ankle impingement. No acute fractures or dislocations noted. Left foot three-view weight-bearing x-rays (12/22/2024): FINDINGS: No fracture, dislocation, or suspicious bone lesion. Normal alignment. Mild degenerative arthritis in the first MCP joint. Joint spaces otherwise preserved. Normal plantar arch. There is a moderate-sized plantar calcaneal spur. There are no soft tissue abnormalities. IMPRESSION: 1. No acute bony abnormalities of the left foot. 2. Mild degenerative arthritis in the first MTP joint. Left ankle three-view weight-bearing x-rays (12/22/2024): FINDINGS: No fracture, dislocation, or suspicious bone lesion. There is normal alignment. Ankle mortise is intact. The talar dome is normal. There are mild osteoarthritic changes in the tibiotalar and fibulotalar joints. There is a moderate-sized plantar calcaneal spur. There is a small dorsal spur. No ankle joint effusion Soft tissues appear grossly normal. IMPRESSION: 1. No acute findings of the left ankle. 2. 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 Assessment & Plan Assessment & Plan (1) Foot pain, left: Code(s): M79.672 - Pain in left foot Category: Medical (2) Arthritis of left ankle: Code(s): M19.072 - Primary osteoarthritis, left ankle and foot Category: Medical (3) Left ankle pain: Code(s): M25.572 - Pain in left ankle and joints of left foot Category: Medical Qualifiers: Chronicity: chronic Qualified Code(s): M25.572 - Pain in left ankle and joints of left foot; G89.29 - Other chronic pain (4) Chronic instability of ankle: Code(s): M25.373 - Other instability, unspecified ankle Category: Medical (5) Arthritis of left foot: Code(s): M19.072 - Primary osteoarthritis, left ankle and foot Category: Medical (6) Impingement of left ankle joint: Code(s): M25.872 - Other specified joint disorders, left ankle and foot Category: Medical (7) Calcaneal spur, left foot: Code(s): M77.32 - Calcaneal spur, left foot Category: Medical (8) Other enthesopathy of left foot and ankle: Code(s): M77.52 - Other enthesopathy of left foot and ankle Category: Medical (9) Left ankle sprain: Code(s): S93.402A - Sprain of unspecified ligament of left ankle, initial encounter Category: Medical Qualifiers: Encounter type: subsequent encounter Involved ligament of ankle: unspecified ligament Qualified Code(s): S93.402D - Sprain of unspecified ligament of left ankle, subsequent encounter (10) Insertional tendinopathy of left Achilles tendon: Code(s): M76.62 - Achilles tendinitis, left leg Category: Medical Plan Patient was informed and verbally consented to the use of an ambient scribe for clinic note documentation during this visit. Discussed diagnosis of arthritis, chronic ankle instability, ankle impingement mild bunion and hammertoes and bone spurs with the patient. I discussed with the patient the presence of bone spurs and their association with plantar fasciitis and Achilles tendinitis. We reviewed the imaging findings, which showed osteoarthritis and a mild bunion, as well as ankle impingement and hammertoes. I explained the potential benefits and limitations of physical therapy, cortisone injections, and surgical interventions, including the risks of arthritis progression and the impact of fusion surgery on joint mobility. We also discussed the use of lidocaine patches and a short CAM boot to manage symptoms. - Initiate physical therapy to strengthen ligaments and improve mobility, aiming to reduce pain and improve function. - Consider cortisone injections for pain relief if physical therapy is insufficient. - Discussed surgical options, including plantar fasciotomy, ankle scope with debridement, and potential fusion, if conservative measures fail. - Prescribed lidocaine patches for localized pain management. Refilled Meloxicam. - Provided patient with a short CAMboot for additional support and to alleviate pressure on the affected areas. - Patient may be WBAT to the LLE. - Advised patient to wear supportive shoe gear and to avoid barefoot walking. Patient is to return to the office in 1 month for further re-evaluation of symptoms. Orders: Orders PT Evaluation and Treatment Today G89.29 - Other chronic pain, M19.072 - Primary osteoarthritis, left ankle and foot, M25.373 - Other instability, unspecified ankle, M25.572 - Pain in left ankle and joints of left foot, M25.872 - Other specified joint disorders, left ankle and foot, M77.32 - Calcaneal spur, left foot, M77.52 - Other enthesopathy of left foot and ankle, M79.672 - Pain in left foot Medications: New lidocaine 5% leave on most painful area for up to 12 hrs 2 patches topical DAILY 30 ea 0RF Arthritis M19.072 - Primary osteoarthritis, left ankle and foot, M79.672 - Pain in left foot Refilled meloxicam 7.5 mg PO DAILY 30 tabs 0RF Left ankle pain M19.072 - Primary osteoarthritis, left ankle and foot, M25.373 - Other instability, unspecified ankle, M25.572 - Pain in left ankle and joints of left foot, S93.402A - Sprain of unspecified ligament of left ankle, initial encounter Coding Level of Care Code Est Pt Level 4 (69818) Diagnoses Foot pain, left M79.672 Arthritis of left ankle M19.072 Chronic pain of left ankle M25.572; G89.29 Chronicity: chronic Chronic instability of ankle M25.373 Arthritis of left foot M19.072 Impingement of left ankle joint M25.872 Calcaneal spur, left foot M77.32 Other enthesopathy of left foot and ankle M77.52 Sprain of left ankle, unspecified ligament, subsequent encounter S93.402D Encounter type: subsequent encounter Involved ligament of ankle: unspecified ligament Insertional tendinopathy of left Achilles tendon M76.62 Time Spent (min) 45
[2024-12-29 08:03] VITALS: BMI 41.3
== END 2024-12-29 08:38 | disposition home or self-care (01) ==
LOC: HO.HPODS 07:44
PROVIDERS: PCP Nurse Practitioner Family; Visit Provider Student in an Organized Health Care Education/Training Program
DX: M79.672 Pain in left foot (principal); M19.072 Primary osteoarthritis, left ankle and foot; M25.572 Pain in left ankle and joints of left foot; G89.29 Other chronic pain; M25.373 Other instability, unspecified ankle; M25.872 Other specified joint disorders, left ankle and foot; M77.32 Calcaneal spur, left foot; M77.52 Other enthesopathy of left foot and ankle; S93.402D Sprain of unspecified ligament of left ankle, subsequent encounter; M76.62 Achilles tendinitis, left leg
CPT/HCPCS: 99214

== ENCOUNTER 2025-02-08 14:09 | Outpatient (AMB) | payer OTHER, SELFPAY ==
--- OUTSIDE RECORDS SUMMARY | 2024-04-07 08:55 | XMS_ITS | Encounter Summary ---
Author Organization [facility] Address [address] [place] [address] Care Team Providers Care Oreman Name Role Phone Pcp, No Primary Care Provider Unavailabl e Encounter Details Date Type Department Care Team (Late st Contact Info) Description 04/07/2024 8:55 AM EST Hospital Encounter [facility] [place] [facility] [address] [place] [address] Lynn Bales PA [address] [place] [address] Social History Tobacco Use Types Packs/Day Years [...] on filedocumented in this encounter Care Teams [place] Relationship Specialty Start Date End Date Pcp, No PCP - General General Medicine 04/07/24 documented as of this encounter
[2025-02-08 14:17] VITALS: BMI 41.3
--- NOTE | 2025-02-08 14:17 | A.OFFVIS_ITS ---
Vital Signs 02/08/25 14:17 Height 5 ft 3 in Weight 233 lb BMI 41.3 Intake Visit Reasons: left foot and ankle arthritis and impingement/bone Intake Note: Elvira is a 50 year old female who presents today for a follow up of her left foot and ankle arthritis and impingement. At her last visit she was advised to initiate physical therapy for strength and improved mobility, was provided with a short CAMboot for additional support, was prescribed lidocaine patches for pain as well as a refill to her meloxicam. Was also advised of future injections or surgeries if therapy and medications were insufficient. Patient reports she is doing well, however with prolonged standing she is in a lot of pain. She also reports boot has helped with the comfort of the ankle. Denies beginning any physical therapy since she has not received any call to schedule an appointment. Allergies methimazole Allergy (Unknown, Verified 12/29/24 08:04) hives shelfish Allergy (Unknown, Uncoded 11/04/24 07:56) Hives HPI Comments Details: The patient is a 49-year-old female presenting for follow-up of ongoing left foot and ankle pain. Patient states she has been taking the meloxicam and has been using the CAMboot as needed with extensive activity. Patient states she continues to have significant pain, worsened with extensive activity. Patient states the pain is localized around the plantar lateral aspect of the foot radiating to the dorsal aspect of the midfoot. Patient states she also experiences pain to the ankle as well as locking to the ankle primarily to the posterior aspect. The patient has expressed significant lifestyle limitations due to pain, impacting her ability to engage in activities and work. She denies any other pedal concerns. The patient has been using lidocaine patches for pain management with mild relief. She typically uses them on Saturday nights when she is on her feet the longest. [facility] Medical History (Updated 12/29/24 @ 08:49 by Caterina Hurtado DPM) Insertional tendinopathy of left Achilles tendon Other enthesopathy of left foot and ankle Calcaneal spur, left foot Impingement of left ankle joint Arthritis of left foot Chronic instability of ankle Left ankle sprain Left ankle pain Arthritis of left ankle Screen for colon cancer Screening for cervical cancer Subclinical hypothyroidism Surgical History (Updated 11/04/24 @ 08:07 by Ana Murphy, [facility]) History of colonoscopy (~08/2024) History of placement of ear tubes Status post sleeve gastrectomy Hx of hernia repair Family History (Updated 03/18/24 @ 09:52 by RMOMEL Rodríguez) Mother Colon polyps Social History (Updated 03/18/24 @ 09:52 by ROMMEL Rodríguez) Housing: [facility] Are you a primary client care consultant to a significant other at home: No Do you presently have visiting nurse or other home services: No Alcohol intake: current Alcohol intake frequency: holidays/special occasions only Patient Tobacco Use Status: Never used Tobacco e-Cigarette/Vaping Use: Never Used Second Hand Smoke Exposure: No service: No Current occupational status: employed Current occupation: [employer] Cognitive needs: No Hearing needs: No Vision needs: Yes Review of Systems Const Details: - Musculoskeletal: Reports continued left foot pain radiating on the top of the midfoot, left ankle pain and instability. All systems reviewed & are unremarkable except as noted in HPI and below Physical Exam Vital Signs: BMI result Body Mass Index 41.3 Extrem Other: Left lower extremity focused physical exam: Derm: No open lesions abrasions or wounds noted. No hyperkeratotic lesions noted. No ecchymosis or erythema noted. No clinical signs of infection. No maceration noted. Vascular: DP/PT pulses palpable. Capillary refill time less than 3 seconds. Minimal edema noted to the left ankle and dorsum of the midfoot. Temperature gradient warm to warm. Pedal hair absent. No varicosities noted. Neuro: Protective sensation is grossly intact. MSK: Pain on palpation to the lateral aspect of the foot radiating to the dorsolateral aspect of the midfoot. Ankle range of motion reduced noted with plantar flexion. No crepitus noted. Negative anterior drawer test. Antalgic gait noted. MMT 4/5. Pain on palpation to the ankle diffuse, worse posteriorly. Patient seen without the CAMboot or brace today. Results Reviewed Results Reviewed: Podiatry Read of Left foot three-view weight-bearing x-rays (12/22/2024): Mild HAV noted with mild hammertoe deformities noted 2 through 5 toes. Osteophytic changes noted diffusely with joint space narrowing noted to the midfoot. Joint space narrowing noted to the 1st MPJ. Calcaneal spur noted plantarly and po steriorly. No acute fractures or dislocations. Podiatry Read of Left ankle three-view weight-bearing x-rays (12/22/2024): Mild osteophytic changes noted to the medial malleolus lateral malleolus and talus. Bone spur noted to the posterior aspect of the talus consistent with posterior ankle impingement. No acute fractures or dislocations noted. Left foot three-view weight-bearing x-rays (12/22/2024): FINDINGS: No fracture, dislocation, or suspicious bone lesion. Normal alignment. Mild degenerative arthritis in the first MCP joint. Joint spaces otherwise preserved. Normal plantar arch. There is a moderate-sized plantar calcaneal spur. There are no soft tissue abnormalities. IMPRESSION: 1. No acute bony abnormalities of the left foot. 2. Mild degenerative arthritis in the first MTP joint. Left ankle three-view weight-bearing x-rays (12/22/2024): FINDINGS: No fracture, dislocation, or suspicious bone lesion. There is normal alignment. Ankle mortise is intact. The talar dome is normal. There are mild osteoarthritic changes in the tibiotalar and fibulotalar joints. There is a moderate-sized plantar calcaneal spur. There is a small dorsal spur. No ankle joint effusion Soft tissues appear grossly normal. IMPRESSION: 1. No acute findings of the left ankle. 2. 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 Assessment & Plan Assessment & Plan (1) Foot pain, left: Code(s): M79.672 - Pain in left foot Category: Medical (2) Arthritis of left ankle: Code(s): M19.072 - Primary osteoarthritis, left ankle and foot Category: Medical (3) Left ankle pain: Code(s): M25.572 - Pain in left ankle and joints of left foot Category: Medical Qualifiers: Chronicity: chronic Qualified Code(s): M25.572 - Pain in left ankle and joints of left foot; G89.29 - Other chronic pain (4) Chronic instability of ankle: Code(s): M25.373 - Other instability, unspecified ankle Category: Medical (5) Arthritis of left foot: Code(s): M19.072 - Primary osteoarthritis, left ankle and foot Category: Medical (6) Impingement of left ankle joint: Code(s): M25.872 - Other specified joint disorders, left ankle and foot Category: Medical (7) Calcaneal spur, left foot: Code(s): M77.32 - Calcaneal spur, left foot Category: Medical (8) Other enthesopathy of left foot and ankle: Code(s): M77.52 - Other enthesopathy of left foot and ankle Category: Medical (9) Left ankle sprain: Code(s): S93.402A - Sprain of unspecified ligament of left ankle, initial encounter Category: Medical Qualifiers: Encounter type: subsequent encounter Involved ligament of ankle: uns pecified ligament Qualified Code(s): S93.402D - Sprain of unspecified ligament of left ankle, subsequent encounter (10) Insertional tendinopathy of left Achilles tendon: Code(s): M76.62 - Achilles tendinitis, left leg Category: Medical Plan Patient was informed and verbally consented to the use of an ambient scribe for clinic note documentation during this visit. I discussed with the patient the option of physical therapy as a non-invasive approach to manage her foot pain. We also talked about the possibility of an injection, explaining that while it may provide relief, the duration of effectiveness can vary significantly between individuals. I explained the potential benefits and limitations of physical therapy, cortisone injections, and surgical interventions, including the risks of arthritis progression and the impact of fusion surgery on joint mobility. - Initiate physical therapy to strengthen ligaments and improve mobility, aiming to reduce pain and improve function. - Consider scheduling an injection for pain relief, with a preference for Saturday to reduce work impact. - Discussed the potential variability in relief duration from the injection, ranging from a few months to a year. - Discussed surgical options, including plantar fasciotomy, ankle scope with debridement, and potential fusion, if conservative measures fail. - Continue using lidocaine patches for localized pain management. - Continue taking Meloxicam prn for pain. - Continue using Camboot prn for pain. - Patient may be WBAT to the LLE. - Advised patient to wear supportive shoe gear and to avoid barefoot walking. - Provided patient with a work note requesting accommodations for extended time for ambulation in between class periods at work. RTC in 2 weeks for cortisone injection. Coding Level of Care Code Est Pt Level 4 (45803) Diagnoses Foot pain, left M79.672 Arthritis of left ankle M19.072 Chronic pain of left ankle M25.572; G89.29 Chronicity: chronic Chronic instability of ankle M25.373 Arthritis of left foot M19.072 Impingement of left ankle joint M25.872 Calcaneal spur, left foot M77.32 Other enthesopathy of left foot and ankle M77.52 Sprain of left ankle, unspecified ligament, subsequent encounter S93.402D Encounter type: subsequent encounter Involved ligament of ankle: unspecified ligament Insertional tendinopathy of left Achilles tendon M76.62 Time Spent (min) 31
--- OUTSIDE RECORDS SUMMARY | 2025-02-08 16:30 | XMS_ITS | Clinical Summary ---
Author Organization [facility] Address [address] [place] [id number] Care Team Providers Care Outside Sales Account Representative Name Role Phone Pcp, No Primary Care Provider Unavailabl e Allergies Active Allergy Reactions Criticality Noted Date Comments Methimazole Hives Medium 04/07/2024 Medications meloxicam (MOBIC) 7.5 MG tablet 5 Active lidocaine (LIDODERM) 5 % patch 2 PATCH TOPICALLY DAILY FOR ARTHRITIS LEAVE ON MOST PAINFUL AREA FOR UP TO 12 HRS 5 Active Encounters Date Type Department Care Team Description 01/15/2025 9:40 AM EDT Office Visit [id number] [address] [place] [phone] Castro Tran MD Family history of epilepsy (Primary Dx); Convulsions, unspecified convulsion type (HCC); Seizure-like activity (HCC) 01/15/2025 Travel from Last 3 Months Social History Tobacco Use Types Packs/Day Years Used Date Smoking Tobacco: Never Passive Smoke Exposure: Past Smokeless Tobacco: Former Tobacco Cessation:Counseling Given: Yes Comments Unknown Sex and Gender Information Value Date Recorded Sex Assigned at Female 12/16/2024 8:08 AM EDT Legal Sex Female 8:01 AM EST Gender Identity Female 12/16/2024 8:08 AM EDT Sexual Orientation Not on file Last Filed Vital Signs Vital Sign Reading Time Taken Comments Blood Pressure 140/86 01/15/2025 9:09 AM EDT Pulse 82 01/15/2025 9:09 AM EDT Temperature 36.4 C (97.6 F) 04/07/2024 8:11 AM EST Respiratory Rate 18 01/15/2025 9:09 AM EDT Oxygen Saturation 100% 04/07/2024 8:11 AM EST Inhaled Oxygen Concentration - - Weight 105 kg (232 lb) 01/15/2025 9:09 AM EDT Height 152.4 cm (5') 04/07/2024 8:11 AM EST Body Mass Index 45.31 04/07/2024 8:11 AM EST Plan of Treatment Health Maintenance Due Date Last Done Comments Hepatitis C Virus Screening 1974 HIV Screening 1987 DTaP/Tdap/Td Vaccines (1 - Tdap) 1993 Hepatitis B Vaccines (1 of 3 - 19+ 3-dose series) 1993 Pap Smear (Ages 21-65) 1995 Mammogram 2014 Colonoscopy 2019 Pneumococcal Vaccines 50+ (1 of 1 - PCV) 02/03/2024 RSV Vaccine 50 years and old er and Patients (1 - Risk 50-74 years 1-dose series) 02/03/2024 Zoster (Shingles) Vaccine (1 of 2) 02/03/2024 Influenza Vaccine 10/30/2024 01/29/2022, , 2018 COVID-19 Vaccine ( - 2024-2 6 season) 2024 01/29/2022, 03/06/2021, 05/27/2020, Additional history exists Insurance [facility] Care Teams Outside Sales Account Representative Relationship Specialty Start Date End Date Pcp, No PCP - General General Medicine 04/07/24
--- OUTSIDE RECORDS SUMMARY | 2025-02-08 16:30 | XMS_ITS | Clinical Summary ---
Author Organization [facility] Address [address] [place] [phone] Phone Care Team Providers Care Client Integration Manager Name Role Phone Evangelina Wallace MD Primary Care Provider Social History Tobacco Use Types Packs/Day Years [...] Last Done Comments Breast Cancer Screening 1974 Colorectal Cancer Screening: Colonoscopy 1974 Hepatitis B Vaccines (1 of 3 - 19+ 3-dose series) 1993 Cervical Cancer Screening: Pap Smear 1995 HIV Screening 01/25/2024 Hepatitis C Screening 01/25/2024 Social Influencers of Health Screening 01/25/2024 Pneumococcal Vaccine: 50+ Years (1 of 1 - PCV) 02/03/2024 RSV Immunization Adult Patients (1 - Risk 50-74 years 1-dose series) 02/03/2024 Zoster Vaccines (1 of 2) 02/03/2024 Depression Screening 04/01/2024 COVID-19 Vaccine ( season) 2024 Influenza Vaccine (#1) 2024 7, [...] to complete this topic Insurance [facility] [address] [place] [id number] Care Teams Client Integration Manager Relationship Specialty Start Date End Date Evangelina Wallace MD [facility] [place] [phone] PCP - General Internal Medicine 08/07/18
== END 2025-02-08 14:57 | disposition home or self-care (01) ==
LOC: HO.HPODS 14:10
PROVIDERS: PCP Nurse Practitioner Family; Visit Provider Student in an Organized Health Care Education/Training Program
DX: M79.672 Pain in left foot (principal); M19.072 Primary osteoarthritis, left ankle and foot; M25.572 Pain in left ankle and joints of left foot; G89.29 Other chronic pain; M25.373 Other instability, unspecified ankle; M25.872 Other specified joint disorders, left ankle and foot; M77.32 Calcaneal spur, left foot; M77.52 Other enthesopathy of left foot and ankle; S93.402D Sprain of unspecified ligament of left ankle, subsequent encounter; M76.62 Achilles tendinitis, left leg
CPT/HCPCS: 99214

== ENCOUNTER 2025-03-29 08:41 | Outpatient (AMB) | payer OTHER, SELFPAY ==
--- OUTSIDE RECORDS SUMMARY | 2024-04-07 08:55 | XMS_ITS | Encounter Summary ---
Author Organization [facility] Address [address] [place] [address] Care Team Providers Care Product Marketing Manager Name Role Phone Pcp, No Primary Care Provider Unavailabl e Encounter Details Date Type Department Care Team (Late st Contact Info) Description 04/07/2024 8:55 AM EST Hospital Encounter [facility] [address] [place] [phone] Lynn Bales PA [address] [place] [address] Social History Tobacco Use Types Packs/Day Years Used Date Smoking Tobacco: Never Passive Smoke Exposure: Past Smokeless Tobacco: Former Comments Unknown Sex and Gender Information Value Date Recorded Sex Assigned at Female 12/16/2024 8:08 AM EDT Legal Sex Female 8:01 AM EST Gender Identity Female 12/16/2024 8:08 AM EDT Sexual Orientation Not on file documented as of this encounter Plan of Treatment Not on file documented as of this encounter Procedures Procedure Name Priority Date/Time Associated Diagnosis Comments XR FOOT 3+ VIEWS-LEFT STAT 04/07/2024 8:59 AM EST Left foot pain documented in this encounter Results * XR Foot 3+ views-Left (04/07/2024 8:59 AM EST) Anatomical Region Laterality Modality Foot Left Computed Radiogr aphy 04/07/2024 8:59 AM EST Impressions 04/07/2024 9:00 AM EST No acute or healing fracture or dislocation. Plantar calcaneal enthesopathy. Narrative 04/07/2024 9:00 AM EST XR FOOT 3+ VIEWS-LEFT: 04/07/2024 8:55 AM CLINICAL HISTORY: acute left lateral foot pain. Fall 3 weeks ago. No prior studies. FINDINGS: No acute or healing fracture or dislocation. Joint spaces and articular surfaces are preserved. Lisfranc alignment is maintained. No erosion or aggressive osseous destruction. Moderate plantar calcaneal enthesophyte. No focal soft tissue swelling or abnormal soft tissue calcification. Procedure Note Renny Rice MD - 04/07/2024 XR FOOT 3+ VIEWS-LEFT: 04/07/2024 8:55 AM CLINICAL HISTORY: acute left lateral foot pain. Fall 3 weeks ago. No prior studies. FINDINGS: No acute or healing fracture or dislocation. Joint spaces and articularsurfaces are preserved. Lisfranc alignment is maintained. No erosion oraggressive osseous destruction. Moderate plantar calcaneal enthesophyte.No focal soft tissue swelling or abnormal soft tissue calcification. IMPRESSION: No acute or healing fracture or dislocation. Plantar calcaneal enthesopathy. us Lynn [facility] ORDERABLE S Final Result documented in this encounter Visit Diagnoses Not on filedocumented in this encounter Care Teams Product Marketing Manager Relationship Specialty Start Date End Date Pcp, No PCP - General General Medicine 04/07/24 documented as of this encounter
--- OUTSIDE RECORDS SUMMARY | 2025-03-29 08:45 | XMS_ITS | Clinical Summary ---
Author Organization [facility] Address [address] [place] [phone] Phone Care Team Providers Care Wire Inspector Name Role Phone Evangelina Wallace MD Primary Care Provider [phone] Social History Tobacco Use Types Packs/Day Years [...] PM EST Sexual Orientation Not on file Plan of Treatment Health Maintenance Due Date [...] patient's age to complete this topic Insurance [facility] [address] [place] [id number] Care Teams Wire Inspector Relationship Specialty Start Date End Date Evangelina Wallace MD [facility] [place] [phone] PCP - General Internal Medicine 08/07/18
--- OUTSIDE RECORDS SUMMARY | 2025-03-29 08:45 | XMS_ITS | Clinical Summary ---
Author Organization [facility] Address [address] [place] [id number] Care Team Providers Care Superintendent Marine Name Role Phone Pcp, No Primary Care [...] AM EDT Office Visit [id number] [address] [place] [phone] Castro Tran MD Family history of epilepsy (Primary Dx); Convulsions, unspecified convulsion type (HCC); Seizure-like activity (HCC) from Last 3 Months Social History [...] 05/27/2020, Additional history exists Insurance [facility] Care Teams Superintendent Marine Relationship Specialty Start Date End Date Pcp, No PCP - General General Medicine 04/07/24
--- NOTE | 2025-03-29 08:48 | A.OFFVIS_ITS ---
Vital Signs 03/29/25 08:49 Height 5 ft 3 in Weight 233 lb BMI 41.3 Intake Visit Reasons: cortisone inj Intake Note: Elvira is a 49-year-old female presenting today for a follow-up of her on going left foot and ankle pain. Today we plan to administer her first cortisone injection. Patient reports she is still experiencing pain in her left foot and ankle and she has no questions or concerns at this time. She mentions she is currently being prescribed zepbound. Allergies methimazole Allergy (Unknown, Verified 03/29/25 08:49) hives shelfish Allergy (Unknown, Uncoded 11/04/24 07:56) Hives HPI Comments Details: The patient is a 49-year-old female presenting for follow-up of ongoing left foot and ankle pain. Patient states she has not started physical therapy yet. Patient states she has been taking meloxicam with mild relief. She has not been using the cam boot recently due to time off at work for the holidays. Patient states she notices pain along the medial aspect of the heel and posterior aspect of the heel. Patient presents today for a cortisone injection to the left heel. She denies any new pedal injuries. She denies any other pedal concerns. [facility] Medical History (Updated 03/29/25 @ 09:14 by Caterina Hurtado DPM) Plantar fasciitis of left foot Pain of left heel Insertional tendinopathy of left Achilles tendon Other enthesopathy of left foot and ankle Calcaneal spur, left foot Impingement of left ankle joint Arthritis of left foot Chronic instability of ankle Left ankle sprain Left ankle pain Arthritis of left ankle Screen for colon cancer Screening for cervical cancer Subclinical hypothyroidism Surgical History (Updated 11/04/24 @ 08:07 by Ana Murphy, [facility]) History of colonoscopy (~08/2024) History of placement of ear tubes Status post sleeve gastrectomy Hx of hernia repair Family History (Updated 03/18/24 @ 09:52 by ROMMEL Rodríguez) Mother Colon polyps Social History (Updated 03/18/24 @ 09:52 by ROMMEL Rodríguez) Housing: Condominium Are you a primary managed care analyst to a significant other at home: No Do you presently have visiting nurse or other home services: No Alcohol intake: current Alcohol intake frequency: holidays/special occasions only Patient Tobacco Use Status: Never used Tobacco e-Cigarette/Vaping Use: Never Used Second Hand Smoke Exposure: No service: No Current occupational status: employed Current occupation: [email or web address] Cognitive needs: No Hearing needs: No Vision needs: Yes Review of Systems Const Details: - Musculoskeletal: Reports continued left foot pain radiating on the heel, left ankle pain and instability. All systems reviewed & are unremarkable except as noted in HPI and below Physical Exam Vital Signs: BMI result Body Mass Index 41.3 Extrem Other: Left lower extremity focused physical exam: Derm: No open lesions abrasions or wounds noted. No hyperkeratotic lesions noted. No ecchymosis or erythema noted. No clinical signs of infection. No maceration noted. Vascular: DP/PT pulses palpable. Capillary refill time less than 3 seconds. Minimal edema noted to the left ankle and dorsum of the midfoot. Temperature gradient warm to warm. Pedal hair absent. No varicosities noted. Neuro: Protective sensation is grossly intact. MSK: Pain on palpation to the medial aspect of the heel. Mild pain on palpation to the central aspect, lateral aspect, and posterior aspect of the heel. Pain to the insertional point of the Achilles tendon. Ankle range of motion reduced noted with plantar flexion. No crepitus noted. Negative anterior drawer test. Antalgic gait noted. MMT 4/5. Pain on palpation to the ankle diffuse, worse posteriorly. Patient seen in sneakers today without brace. Office Procedures AMB Flexor Tendon/Plantar POD Tendon Injection Details of AMB Procedure: Procedure: Left foot plantar fascia injection: Patient identified the most painful aspect of the left heel which was marked prior to injection. Next, cleansed the affected area with an alcohol. Next injected 2 cc of lidocaine plain, 1 cc of dexamethasone, and 1 cc of triamcinolone to the affected area with no incidents. A band-aid was applied to the area. Provided patient with after care instructions. Tendon Injection POD1: - Plantar Fascia Injection All charges added?: Procedure code (CPT) selection complete Office Meds triamcinolone acetonide 40 mg/mL suspension for injection Performing Provider: Caterina Hurtado DPM Performing Location: [facility] [place] [facility] Administered by: Caterina Hurtado DPM on 03/29/25 09:10 Dose Route Admin Location Dispensed Lot Number Expiration Date FORMERLY NAMED [facility] Pickle Sorter 40 mg Tendon Sheath Inj. 1 mL [address]-6 [employer] Total Dispensed Waste 1 mL 0 % dexamethasone sodium phosphate 4 mg/mL injection solution Performing Provider: Caterina Hurtado DPM Performing Location: [facility] [place] [facility] Administered by: Caterina Hurtado DPM on 03/29/25 09:10 Dose Route Admin Location Dispensed Lot Number Expiration Date FORMERLY NAMED [facility] Pickle Sorter 4 mg Tendon Sheath Inj. 1 mL 59282-757-11 [employer] Total Dispensed Waste 1 mL 0 % lidocaine HCl 10 mg/mL (1 %) injection solution Performing Provider: Caterina Hurtado DPM Performing Location: [facility] [place] [facility] Administered by: Caterina Hurtado DPM on 03/29/25 09:10 Dose Route Admin Location Dispensed Lot Number Expiration Date FORMERLY NAMED [facility] Pick[employer] 2 mL subcut 2 mL [id number] Total Dispensed Waste 2 mL 0 % Results Reviewed Results Reviewed: Podiatry Read of Left foot three-view weight-bearing x-rays (12/22/2024): Mild HAV noted with mild hammertoe deformities noted 2 through 5 toes. Osteophytic changes noted diffusely with joint space narrowing noted to the midfoot. Joint space narrowing noted to the 1st MPJ. Calcaneal spur noted plantarly and posteriorly. No acute fractures or dislocations. Podiatry Read of Left ankle three-view weight-bearing x-rays (12/22/2024): Mild osteophytic changes noted to the medial malleolus lateral malleolus and talus. Bone spur noted to the posterior aspect of the talus consistent with posterior ankle impingement. No acute fractures or dislocations noted. Left foot three-view weight-bearing x-rays (12/22/2024): FINDINGS: No fracture, dislocation, or suspicious bone lesion. Normal alignment. Mild degenerative arthritis in the first MCP joint. Joint spaces otherwise preserved. Normal plantar arch. There is a moderate-sized plantar calcaneal spur. There are no soft tissue abnormalities. IMPRESSION: 1. No acute bony abnormalities of the left foot. 2. Mild degenerative arthritis in the first MTP joint. Left ankle three-view weight-bearing x-rays (12/22/2024): FINDINGS: No fracture, dislocation, or suspicious bone lesion. There is normal alignment. Ankle mortise is intact. The talar dome is normal. There are mild osteoarthritic changes in the tibiotalar and fibulotalar joints. There is a moderate-sized plantar calcaneal spur. There is a small dorsal spur. No ankle joint effusion Soft tissues appear grossly normal. IMPRESSION: 1. No acute findings of the left ankle. 2. 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 Assessment & Plan Assessment & Plan (1) Foot pain, left: Code(s): M79.672 - Pain in left foot Category: Medical (2) Calcaneal spur, left foot: Code(s): M77.32 - Calcaneal spur, left foot Category: Medical (3) Other enthesopathy of left foot and ankle: Code(s): M77.52 - Other enthesopathy of left foot and ankle Category: Medical (4) Insertional tendinopathy of left Achilles tendon: Code(s): M76.62 - Achilles tendinitis, left leg Category: Medical (5) Pain of left heel: Code(s): M79.672 - Pain in left foot Category: Medical (6) Arthritis of left ankle: Code(s): M19.072 - Primary osteoarthritis, left ankle and foot Category: Medical (7) Left ankle pain: Code(s): M25.572 - Pain in left ankle and joints of left foot Category: Medical Qualifiers: Chronicity: chronic Qualified Code(s): M25.572 - Pain in left ankle and joints of left foot; G89.29 - Other chronic pain (8) Chronic instability of ankle: Code(s): M25.373 - Other instability, unspecified ankle Category: Medical (9) Arthritis of left foot: Code(s): M19.072 - Primary osteoarthritis, left ankle and foot Category: Medical (10) Impingement of left ankle joint: Code(s): M25.872 - Other specified joint disorders, left ankle and foot Category: Medical (11) Left ankle sprain: Code(s): S93.402A - Sprain of unspecified ligament of left ankle, initial encounter Category: Medical Qualifiers: Encounter type: subsequent encounter Involved ligament of ankle: unspecified ligament Qualified Code(s): S93.402D - Sprain of unspecified ligament of left ankle, subsequent encounter (12) Plantar fasciitis of left foot: Code(s): M72.2 - Plantar fascial fibromatosis Category: Medical Plan Patient was informed and verbally consented to the use of an ambient scribe for clinic note documentation during this visit. I explained the cortisone injection procedure to the patient and obtained consent. I advised her that post-injection soreness is expected for a few days, after which the pain should begin to resolve. I confirmed that she can walk after the procedure but should avoid being on her feet for prolonged hours. She can remove the bandage later today. We discussed her intention to start physical therapy, which had been delayed, and I scheduled a follow-up appointment in 10 weeks to assess her progress. - Administered a cortisone injection to the left heel without incidents. - The patient was counseled that she may experience soreness from the injection for a few days, after which the pain is expected to subside. - Recommend patient start physical therapy. - Discussed surgical options, including plantar fasciotomy, ankle scope with debridement, and potential fusion, if conservative measures fail. - Continue using lidocaine patches for localized pain management. - Continue taking Meloxicam prn for pain. - Continue using [place] prn for pain. - Patient may be WBAT to the LLE. - Advised patient to wear supportive shoe gear and to avoid barefoot walking. RTC in 10 weeks. Orders: Orders AMB Flexor Tendon / Plantar Fascia Injection Today M76.62 - Achilles tendinitis, left leg, M77.32 - Calcaneal spur, left foot, M77.52 - Other enthesopathy of left foot and ankle, M79.672 - Pain in left foot Coding Level of Care Code Est Pt Level 4 (93723) Diagnoses Foot pain, left M79.672 Calcaneal spur, left foot M77.32 Other enthesopathy of left foot and ankle M77.52 Insertional tendinopathy of left Achilles tendon M76.62 Pain of left heel M79.672 Arthritis of left ankle M19.072 Chronic pain of left ankle M25.572; G89.29 Chronicity: chronic Chronic instability of ankle M25.373 Arthritis of left foot M19.072 Impingement of left ankle joint M25.872 Sprain of left ankle, unspecified ligament, subsequent encounter S93.402D Encounter type: subsequent encounter Involved ligament of ankle: unspecified ligament Plantar fasciitis of left foot M72.2 CPT Codes Tendon Injection - Tendon Injection POD1: - Plantar Fascia Injection ([id number]) Time Spent (min) 35 Comment 5 mins for procedure
[2025-03-29 08:49] VITALS: BMI 41.3
== END 2025-03-29 09:06 | disposition home or self-care (01) ==
LOC: HO.HPODS 08:42
PROVIDERS: PCP Nurse Practitioner Family; Visit Provider Student in an Organized Health Care Education/Training Program
DX: M79.672 Pain in left foot (principal); M77.32 Calcaneal spur, left foot; M77.52 Other enthesopathy of left foot and ankle; M76.62 Achilles tendinitis, left leg; M19.072 Primary osteoarthritis, left ankle and foot; M25.572 Pain in left ankle and joints of left foot; G89.29 Other chronic pain; M25.373 Other instability, unspecified ankle; M25.872 Other specified joint disorders, left ankle and foot; S93.402D Sprain of unspecified ligament of left ankle, subsequent encounter; M72.2 Plantar fascial fibromatosis
CPT/HCPCS: 20550; 99214

== ENCOUNTER → 2025-03-29 08:41 | Outpatient (BNVA) | payer OTHER, SELFPAY | PROVIDERS: PCP Nurse Practitioner Family; Visit Provider Student in an Organized Health Care Education/Training Program | DX: S93.402D Sprain of unspecified ligament of left ankle, subsequent encounter (principal); M79.672 Pain in left foot; M77.32 Calcaneal spur, left foot; M77.52 Other enthesopathy of left foot and ankle; M76.62 Achilles tendinitis, left leg; M25.572 Pain in left ankle and joints of left foot; G89.29 Other chronic pain; M19.072 Primary osteoarthritis, left ankle and foot; M25.372 Other instability, left ankle; M72.2 Plantar fascial fibromatosis; X58.XXXD Exposure to other specified factors, subsequent encounter | CPT/HCPCS: 20550; J1100; J2003; J3301 ==